=== PATIENT | female | born 1945 | race Caucasian/White ===

== ENCOUNTER 2017-02-04 04:56 | Emergency (ER) | payer MEDICARE, BC ==
[2017-02-04 05:19] VITALS: BP 159/89
--- NOTE | 2017-02-04 05:44 | EDM.PDOC ---
ED HPI GENERAL MEDICAL PROBLEM - General Chief Complaint: Genitourinary Problem Stated Complaint: BLADDER INFECTION Time Seen by Provider: 02/04/17 05:37 Source of Information: Reports: Patient, RN Notes Reviewed History Limitations: Reports: No Limitations - History of Present Illness INITIAL COMMENTS - FREE TEXT/NARRATIVE: 71-year-old female presents emergency department a complaint of burning with urination, she denies any other symptoms this has been going on for 24 hours pelvic area Pain Score (Numeric/FACES): 3 - Related Data Allergies Allergy/AdvReac Type Severity Reaction Status Date / Time Sulfa (Sulfonamide Allergy Rash Verified 03/23/13 12:09 Antibiotics) steroids Allergy Hives Uncoded 02/04/17 05:10 Home Meds: Home Meds Alendronate Sodium [Fosamax] 70 mg PO .WEEKLY 06/10/13 [History] Aspirin 325 mg PO DAILY 06/10/13 [History] Calcium Citrate/Vitamin D3 [Calcium Cit-Vit D 315-200] 2 each PO DAILY 06/10/13 [History] Cholecalciferol (Vitamin D3) [Vitamin D3] 1,000 units PO DAILY 06/10/13 [History ] Folic Acid/Mv,Fe,Min [Centrum Multivitamin] 1 each PO DAILY 06/10/13 [History] Lactobacillus Combination No.4 [Probiotic] 1 each PO DAILY 06/10/13 [History] Loratadine/Pseudoephedrine [Claritin-D 24HR] 1 tab PO DAILY 06/10/13 [History] Metoprolol Tartrate [Lopressor] 25 mg PO BID 06/10/13 [History] Mineral Oil/Petrolatum,White [Refresh Lacri-Lube] 3.5 gm OP BEDTIME 07/25/14 [ History] Past Medical History HEENT History: Reports: Impaired Vision Cardiovascular History: Reports: Hypertension Musculoskeletal History: Reports: Fracture, Other (See Below) Other Musculoskeletal History: left ankle fracture 2012 - Infectious Disease History Infectious Disease History: Reports: Chicken Pox, Measles, Mumps - Past Surgical History Head Surgeries/Procedures: Reports: None HEENT Surgical History: Reports: None Cardiovascular Surgical History: Reports: None Respiratory Surgical History: Reports: None GI Surgical History: Reports: Colonoscopy Female Surgical History: Reports: Hysterectomy Endocrine Surgical History: Reports: None Neurological Surgical History: Reports: None Musculoskeletal Surgical History: Reports: None Oncologic Surgical History: Reports: None Dermatological Surgical History: Reports: None Social & Family History - Tobacco Use Smoking Status *Q: Never Smoker Years of Tobacco use: 30 Used Tobacco, but Quit: Yes Month Tobacco Last Used: 01/2013 Second Hand Smoke Exposure: Yes - Caffeine Use Caffeine Use: Reports: Coffee, Soda - Alcohol Use Days Per Week of Alcohol Use: 7 Number of Drinks Per Day: 2 Total Drinks Per Week: 14 - Recreational Drug Use Recreational Drug Use: No ED ROS GENERAL - Review of Systems Review Of Systems: See Below Constitutional: Denies: Fever, Chills GI/Abdominal: Denies: Abdominal Pain : Reports: Dysuria ED EXAM, RENAL/ - Physical Exam Exam: See Below Exam Limited By: No Limitations General Appearance: Alert, WD/WN, No Apparent Distress GI/Abdominal: Soft, Non-Tender Back Exam: No: CVA Tenderness (R), CVA Tenderness (L) Course - Vital Signs Last Recorded V/S: Last Vital Signs Temp 96.5 F 02/04/17 05:10 Pulse 85 02/04/17 05:10 Resp 16 02/04/17 05:10 BP 159/89 H 02/04/17 05:10 Pulse Ox 99 02/04/17 05:10 - Orders/Labs/Meds Orders: Active Orders 24 hr Category Date Time Status CULTURE URINE [RM] Urgent Lab 02/04/17 05:37 Ordered Labs: Laboratory Tests 02/04/17 Range/Units 05:24 Urine Color Red Urine Appearance Cloudy Urine pH 8.0 (4.5-8.0) Ur Specific [place] 1.015 (1.008-1.030) Urine Protein 500 H (NEGATIVE) mg/dL Urine Glucose (UA) Normal (NEGATIVE) mg/dL Urine Ketones Negative (NEGATIVE) mg/dL Urine Occult Blood Large (NEGATIVE) Urine Nitrite Positive H (NEGATIVE) Urine Bilirubin Small (NEGATIVE) Urine Urobilinogen 1 (NORMAL) mg/dL Ur Leukocyte Esterase Large (NEGATIVE) Urine RBC >100 H (0-5) Urine WBC 20-30 H (0-5) Ur Epithelial Cells Few Amorphous Sediment Not seen Urine Bacteria Moderate Urine Mucus Not seen Departure - Departure Time of Disposition: 05:44 Disposition: Home, Self-Care 01 Condition: Good Clinical Impression: UTI, Urinary tract infectious disease - Discharge Information Forms: ED Department Discharge Additional Instructions: Take full course of antibiotics, Please followup with your primary care provider in 3-5 days if not better, please call return to the emergency department with worsening of symptoms. - My Orders Last 24 Hours: My Active Orders 02/04/17 05:37 CULTURE URINE [RM] Urgent - Assessment/Plan Last 24 Hours: My Active Orders 02/04/17 05:37 CULTURE URINE [RM] Urgent Plan: Assessment Acuity = acute Site and laterality = urinary tract infection Etiology = probable bacterial cause Manifestations = dysuria Location of injury = Home Lab values = urinalysis reveals positive nitrates, greater than 100 rbc's consistent hematuria in 2030 WBCs consistent with pyuria cultures pending Plan Placed on ciprofloxacin 250 by mouth twice a day 3 days follow-up primary care 3-5 days if not better Patient was in agreement with the plan all questions were answered, they were instructed to return to the emergency department or call for worsening symptoms. This note was dictated using [employer] voice recognition software please call with any questions.
== END 2017-02-04 06:12 | disposition home or self-care (01) ==
LOC: JP.ED 04:56
DX: N39.0 Urinary tract infection, site not specified (principal); H54.7 Unspecified visual loss; I10 Essential (primary) hypertension; Z90.710 Acquired absence of both cervix and uterus; Z88.2 Allergy status to sulfonamides; Z88.5 Allergy status to narcotic agent; Z79.82 Long term (current) use of aspirin; Z79.899 Other long term (current) drug therapy
CPT/HCPCS: 81001; 87086; 87088; 87186; 99283; 99284

== ENCOUNTER 2017-07-11 05:40 | Emergency (ER) | payer MEDICARE, BC ==
[2017-07-11 05:59] VITALS: BP 153/86
--- NOTE | 2017-07-11 06:33 | EDM.PDOC ---
ED HPI GENERAL MEDICAL PROBLEM - General Chief Complaint: Genitourinary Problem Stated Complaint: UTI Time Seen by Provider: 07/11/17 06:15 Source of Information: Reports: Patient History Limitations: Reports: No Limitations - History of Present Illness INITIAL COMMENTS - FREE TEXT/NARRATIVE: 71-year-old female with dysuria and increased urinary frequency for the last 48 hours. No fevers or chills, no flank pain. Denies nausea or vomiting. Onset: Gradual Duration: Day(s): (Over the past 3 days) Severity: Mild Worsens with: Reports: Other (Urination) Associated Symptoms: Denies: Chest Pain, Fever/Chills, Nausea/Vomiting, Shortness of Breath bladder Pain Score (Numeric/FACES): 2 - Related Data Allergies Allergy/AdvReac Type Severity Reaction Status Date / Time Sulfa (Sulfonamide Allergy Rash Verified 07/11/17 05:52 Antibiotics) steroids Allergy Hives Uncoded 07/11/17 05:52 Home Meds: Home Meds Alendronate Sodium [Fosamax] 70 mg PO .WEEKLY 06/10/13 [History] Aspirin 325 mg PO DAILY 06/10/13 [History] Calcium Citrate/Vitamin D3 [Calcium Cit-Vit D 315-200] 2 each PO DAILY 06/10/13 [History] Cholecalciferol (Vitamin D3) [Vitamin D3] 1,000 units PO DAILY 06/10/13 [History ] Folic Acid/Mv,Fe,Min [Centrum Multivitamin] 1 each PO DAILY 06/10/13 [History] Lactobacillus Combination No.4 [Probiotic] 1 each PO DAILY 06/10/13 [History] Loratadine/Pseudoephedrine [Claritin-D 24HR] 1 tab PO DAILY 06/10/13 [History] Metoprolol Tartrate [Lopressor] 25 mg PO BID 06/10/13 [History] Mineral Oil/Petrolatum,White [Refresh Lacri-Lube] 3.5 gm OP BEDTIME 07/25/14 [ History] Past Medical History HEENT History: Reports: Impaired Vision Cardiovascular History: Reports: Hypertension Respiratory History: Reports: None Gastrointestinal History: Reports: None Genitourinary History: Reports: None LINE MAINTENANCE History: Reports: None Musculoskeletal History: Reports: Fracture, Other (See Below) Other Musculoskeletal History: left ankle fracture 2013 Neurological History: Reports: None Psychiatric History: Reports: None Endocrine/Metabolic History: Reports: None Hematologic History: Reports: None Immunologic History: Reports: None Oncologic (Cancer) History: Reports: None Dermatologic History: Reports: None - Infectious Disease History Infectious Disease History: Reports: Chicken Pox, Measles, Mumps - Past Surgical History GI Surgical History: Reports: Colonoscopy Female Surgical History: Reports: Hysterectomy Social & Family History - Tobacco Use Smoking Status *Q: Never Smoker Years of Tobacco use: 30 Used Tobacco, but Quit: Yes Month Tobacco Last Used: 01/2013 Second Hand Smoke Exposure: Yes - Caffeine Use Caffeine Use: Reports: Coffee, Soda - Alcohol Use Days Per Week of Alcohol Use: 7 Number of Drinks Per Day: 2 Total Drinks Per Week: 14 - Recreational Drug Use Recreational Drug Use: No ED ROS GENERAL - Review of Systems Review Of Systems: See Below Constitutional: Denies: Fever, Chills Respiratory: Denies: Shortness of Breath Cardiovascular: Denies: Chest Pain GI/Abdominal: Denies: Abdominal Pain : Reports: Dysuria, Frequency, Urgency ED EXAM, RENAL/ - Physical Exam Exam: See Below Exam Limited By: No Limitations General Appearance: Alert, No Apparent Distress Respiratory/Chest: No Respiratory Distress Back Exam: No: CVA Tenderness (R), CVA Tenderness (L) Neurological: Alert, Oriented Psychiatric: Normal Affect, Normal Mood Skin Exam: Warm, Dry Course - Vital Signs Last Recorded V/S: Last Vital Signs Temp 95.0 F L 07/11/17 06:01 Pulse 99 07/11/17 06:01 Resp 17 07/11/17 06:01 BP 153/86 H 07/11/17 06:01 Pulse Ox 100 07/11/17 06:01 - Orders/Labs/Meds Orders: Active Orders 24 hr Category Date Time Status CULTURE URINE [RM] Stat Lab 07/11/17 06:06 Received Labs: Laboratory Tests 07/11/17 Range/Units 06:06 Urine Color Brown Urine Appearance Cloudy Urine pH 7.0 (4.5-8.0) Ur Specific [place] 1.020 (1.008-1.030) Urine Protein 500 H (NEGATIVE) mg/dL Urine Glucose (UA) Normal (NEGATIVE) mg/dL Urine Ketones Negative (NEGATIVE) mg/dL Urine Occult Blood Large (NEGATIVE) Urine Nitrite Positive H (NEGATIVE) Urine Bilirubin Negative (NEGATIVE) Urine Urobilinogen 1 (NORMAL) mg/dL Ur Leukocyte Esterase Large (NEGATIVE) Urine RBC Packed H (0-5) Urine WBC (0-5) - Re-Assessments/Exams Free Text/Narrative Re-Assessment/Exam: 07/11/17 06:31 UA is actively abnormal with packed RBCs, bacteria, and nitrite positive. Very similar to findings on her UTI 5 months ago. She responded well to ciprofloxacin , he will be used again at 500 mg twice daily for 3 days. Patient declined Pyridium. She'll return if worsening despite treatment. Departure - Departure Time of Disposition: 06:51 Disposition: Home, Self-Care 01 Condition: Good Clinical Impression: UTI, Urinary tract infectious disease - Discharge Information Instructions: Urinary Tract Infection, Adult, [id number] Referrals: Danita Schneider CNM [Primary Care Provider] - Forms: ED Department Discharge Care Plan Goals: Take antibiotic twice a day for 3 days, drink lots of water and return if not improving satisfactorily after 48-72 hours. Return sooner if worsening such as fever or vomiting, or increased pain. - My Orders Last 24 Hours: My Active Orders 07/11/17 06:06 CULTURE URINE [RM] Stat - Assessment/Plan Last 24 Hours: My Active Orders 07/11/17 06:06 CULTURE URINE [RM] Stat
== END 2017-07-11 06:43 | disposition home or self-care (01) ==
LOC: JP.ED 05:40
DX: N39.0 Urinary tract infection, site not specified (principal); I10 Essential (primary) hypertension; Z87.891 Personal history of nicotine dependence; Z79.899 Other long term (current) drug therapy; Z79.82 Long term (current) use of aspirin; Z88.2 Allergy status to sulfonamides; Z88.8 Allergy status to other drugs, medicaments and biological substances
CPT/HCPCS: 81001; 87086; 87088; 87186; 99283; 99284

== ENCOUNTER 2018-04-22 11:17 | Emergency (ER) | payer MEDICARE, BC ==
--- NOTE | 2018-04-22 12:32 | EDM.PDOC ---
ED HPI GENERAL MEDICAL PROBLEM - General Chief Complaint: Abdominal Pain Stated Complaint: MED[facility] Time Seen by Provider: 04/22/18 11:30 Source of Information: Reports: Patient, EMS History Limitations: Reports: No Limitations - History of Present Illness INITIAL COMMENTS - FREE TEXT/NARRATIVE: 72-year-old female brought in by EMS with diarrhea for the past 5 hours, she noticed some blood in the diarrhea which scared her so she called EMS. She feels like she is already improving with less abdominal cramping and diarrhea slowing down. No fever, no vomiting. She does have some mild nausea. She woke up with symptoms at 5 AM, she was fine when she went to bed. A colonoscopy 3 years ago was normal. She has no history of chronic colitis or other gastrointestinal disease. Onset: Sudden Duration: Hour(s): (6 hours) Severity: Moderate Associated Symptoms: Reports: Malaise. Denies: Confusion, Chest Pain, Fever/ Chills, Loss of Appetite, Shortness of Breath Abdomen Pain Score (Numeric/FACES): 2 - Related Data Allergies Allergy/AdvReac Type Severity Reaction Status Date / Time Latex, Natural Rubber Allergy Hives Verified 04/22/18 11:26 Sulfa (Sulfonamide Allergy Rash Verified 04/22/18 11:20 Antibiotics) steroids Allergy Hives Uncoded 07/11/17 05:52 Home Meds: Home Meds Alendronate Sodium [Fosamax] 70 mg PO .WEEKLY 06/10/13 [History] Aspirin 325 mg PO DAILY 06/10/13 [History] Calcium Citrate/Vitamin D3 [Calcium Cit-Vit D 315-200] 2 each PO DAILY 06/10/13 [History] Cholecalciferol (Vitamin D3) [Vitamin D3] 1,000 units PO DAILY 06/10/13 [History ] Folic Acid/Mv,Fe,Min [Centrum Multivitamin] 1 each PO DAILY 06/10/13 [History] Lactobacillus Combination No.4 [Probiotic] 1 each PO DAILY 06/10/13 [History] Loratadine/Pseudoephedrine [Claritin-D 24HR] 1 tab PO DAILY 06/10/13 [History] Metoprolol Tartrate [Lopressor] 25 mg PO BID 06/10/13 [History] Mineral Oil/Petrolatum,White [Refresh Lacri-Lube] 3.5 gm OP BEDTIME 07/25/14 [ History] Fluticasone Propionate [Flonase] 1 spray [place] DAILY 04/22/18 [History] Ranitidine HCl [Ranitidine] 1 tab PO BID 04/22/18 [History] Past Medical History HEENT History: Reports: Impaired Vision Cardiovascular History: Reports: Hypertension Respiratory History: Reports: None Gastrointestinal History: Reports: None Genitourinary History: Reports: None TRANSPORTATION JOB TITLES History: Reports: None Musculoskeletal History: Reports: Fracture, Other (See Below) Other Musculoskeletal History: left ankle fracture 2012 Neurological History: Reports: Migraines Psychiatric History: Reports: None Endocrine/Metabolic History: Reports: None Hematologic History: Reports: None Immunologic History: Reports: None Oncologic (Cancer) History: Reports: None Dermatologic History: Reports: None - Infectious Disease History Infectious Disease History: Reports: Chicken Pox, Measles, Mumps - Past Surgical History GI Surgical History: Reports: Appendectomy, Colonoscopy Female Surgical History: Reports: Hysterectomy Social & Family History - Tobacco Use Smoking Status *Q: Never Smoker - Caffeine Use Caffeine Use: Reports: Coffee, Soda - Alcohol Use Days Per Week of Alcohol Use: 7 Number of Drinks Per Day: 2 Total Drinks Per Week: 14 - Recreational Drug Use Recreational Drug Use: No ED ROS GENERAL - Review of Systems Review Of Systems: See Below Constitutional: Reports: Chills, Malaise. Denies: Fever HEENT: Reports: No Symptoms Respiratory: Denies: Shortness of Breath Cardiovascular: Denies: Chest Pain Endocrine: Denies: Fatigue GI/Abdominal: Reports: Abdominal Pain, Diarrhea, Hematochezia, Nausea. Denies: Vomiting : Reports: No Symptoms Skin: Reports: No Symptoms Neurological: Reports: No Symptoms Psychiatric: Reports: No Symptoms ED EXAM, GI/ABD - Physical Exam Exam: See Below Exam Limited By: No Limitations General Appearance: Alert, No Apparent Distress Eyes: Bilateral: Normal Appearance (No jaundice) Respiratory/Chest: No Respiratory Distress, Lungs Clear Cardiovascular: Regular Rate, Rhythm GI/Abdominal Exam: Soft, Tender (She has diffuse discomfort to palpation but no focal tenderness or rebound tenderness, no guarding), Abnormal Bowel Sounds ( Bowel sounds are hyperactive but not high pitched) Extremities: Normal Inspection. No: Pedal Edema Neurological: Alert, Oriented Psychiatric: Normal Affect, Normal Mood Skin Exam: Warm, Dry Course - Vital Signs Last Recorded V/S: Last Vital Signs Temp 97.1 F 04/22/18 13:04 Pulse 70 04/22/18 13:04 Resp 16 04/22/18 13:04 BP 175/90 H 04/22/18 13:04 Pulse Ox 100 04/22/18 13:04 - Orders/Labs/Meds Orders: Active Orders 24 hr Category Date Time Status CULTURE STOOL + SHIGATOX [RM] Stat Lab 04/22/18 13:43 Received Labs: Laboratory Tests 04/22/18 04/22/18 Range/Units 12:14 12:14 WBC 14.0 H (4.5-11.0) K/uL RBC 4.56 (3.30-5.50) M/uL Hgb 15.0 (12.0-15.0) g/dL Hct 42.0 (36.0-48.0) % MCV 92 (80-98) fL MCH 33 H (27-31) pg MCHC 36 (32-36) % Plt Count 231 (150-400) K/uL Neut % (Auto) 89 H (36-66) % Lymph % (Auto) 5 L (24-44) % [place] % (Auto) 6 (2-6) % Eos % (Auto) 0 L (2-4) % Baso % (Auto) 0 (0-1) % Sodium 131 L (140-148) mmol/L Potassium 4.2 (3.6-5.2) mmol/L Chloride 94 L (100-108) mmol/L Carbon Dioxide 29 (21-32) mmol/L Anion Gap 12.2 (5.0-14.0) mmol/L BUN 13 (7-18) mg/dL Creatinine 0.8 (0.6-1.0) mg/dL Est Cr Clr Drug Dosing 58.88 mL/min Estimated GFR (MDRD) > 60 (>60) Glucose 122 H (74-106) mg/dL Calcium 9.9 (8.5-10.1) mg/dL Total Bilirubin 0.8 (0.2-1.0) mg/dL AST 26 (15-37) U/L ALT 25 (12-78) U/L Alkaline Phosphatase 103 (46-116) U/L Total Protein 7.9 (6.4-8.2) g/dL Albumin 4.1 (3.4-5.0) g/dL Globulin 3.8 H (2.3-3.5) g/dL Albumin/Globulin Ratio 1.1 L (1.2-2.2) - Re-Assessments/Exams Free Text/Narrative Re-Assessment/Exam: 04/22/18 12:31 CBC CMP were obtained and orders for stool studies. Patient was in the emergency room for an hour pending labs, and was unable to give a stool sample. 04/22/18 13:24 Labs returned reassuring, white count was just slightly elevated and her CMP was basically normal. Hemoglobin is normal. After 2 hours she still did not have a diarrheal stool and her symptoms were resolving, she was able to stand and ambulate without significant discomfort. Just prior to discharge however she did have a diarrheal stool with mucus and some blood. This was sent to lab and was moderately positive for WBCs. She is small meal without difficulty. She' ll be discharged and informed to return if symptoms recur or worsen or she'll recheck if not improving satisfactorily in the next 24-48 hours. We will contact her with any positive culture results that need follow-up. Departure - Departure Time of Disposition: 15:06 Disposition: Home, Self-Care 01 Condition: Good Clinical Impression: Diarrhea Qualifiers: Diarrhea type: presumed infectious Qualified Code(s): R19.7 - Diarrhea, unspecified - Discharge Information Instructions: Diarrhea, Adult, [id number] Referrals: PCP,None [Primary Care Provider] - Forms: ED Department Discharge Care Plan Goals: Advance activity and diet as tolerated. Return anytime if significant worsening or concerns, or consider rechecking in 1-2 days if not improving satisfactorily. - My Orders Last 24 Hours: My Active Orders 04/22/18 13:43 CULTURE STOOL + SHIGATOX [RM] Stat - Assessment/Plan Last 24 Hours: My Active Orders 04/22/18 13:43 CULTURE STOOL + SHIGATOX [RM] Stat
[2018-04-22 13:04] VITALS: BP 175/90
== END 2018-04-22 15:29 | disposition home or self-care (01) ==
LOC: JP.ED 11:17
DX: R19.7 Diarrhea, unspecified (principal); Z79.82 Long term (current) use of aspirin; Z79.899 Other long term (current) drug therapy; Z88.2 Allergy status to sulfonamides; Z91.040 Latex allergy status; Z88.8 Allergy status to other drugs, medicaments and biological substances
CPT/HCPCS: 36415; 80053; 85025; 87046; 87899; 89055; 99284

== ENCOUNTER 2018-04-23 14:29 | Inpatient (IN) | payer MEDICARE, BC ==
--- NOTE | 2018-04-23 16:11 | EDM.PDOC ---
ED HPI GENERAL MEDICAL PROBLEM - General Chief Complaint: Gastrointestinal Problem Stated Complaint: BOWEL BLEED Time Seen by Provider: 04/23/18 15:15 Source of Information: Reports: Patient History Limitations: Reports: No Limitations - History of Present Illness INITIAL COMMENTS - FREE TEXT/NARRATIVE: 72-year-old female who I saw yesterday for rectal bleeding, she made a call to her clinic this morning to talk to them about persistent bleeding and some cramping in they advised her to come back to the emergency room. She has no fevers or chills. She had no bleeding overnight but this morning when she took a shower she had a few clots pass rectally. She is still having some intermittent lower abdominal cramping. No nausea or vomiting. Onset: Sudden Associated Symptoms: Denies: Chest Pain, Cough, Fever/Chills, Malaise, Nausea/ Vomiting, Shortness of Breath, Weakness Left Lower Abdomen Pain Score (Numeric/FACES): 2 - Related Data Allergies Allergy/AdvReac Type Severity Reaction Status Date / Time Latex, Natural Rubber Allergy Hives Verified 04/23/18 14:45 Sulfa (Sulfonamide Allergy Rash Verified 04/23/18 14:45 Antibiotics) steroids Allergy Hives Uncoded 04/23/18 14:45 Home Meds: Home Meds Alendronate Sodium [Fosamax] 70 mg PO .WEEKLY 06/10/13 [History] Aspirin 325 mg PO DAILY 06/10/13 [History] Calcium Citrate/Vitamin D3 [Calcium Cit-Vit D 315-200] 2 each PO DAILY 06/10/13 [History] Cholecalciferol (Vitamin D3) [Vitamin D3] 1,000 units PO DAILY 06/10/13 [History ] Folic Acid/Mv,Fe,Min [Centrum Multivitamin] 1 each PO DAILY 06/10/13 [History] Lactobacillus Combination No.4 [Probiotic] 1 each PO DAILY 06/10/13 [History] Loratadine/Pseudoephedrine [Claritin-D 24HR] 1 tab PO DAILY 06/10/13 [History] Metoprolol Tartrate [Lopressor] 25 mg PO BID 06/10/13 [History] Mineral Oil/Petrolatum,White [Refresh Lacri-Lube] 3.5 gm OP BEDTIME 07/25/14 [ History] Fluticasone Propionate [Flonase] 1 spray KATARINA DAILY 04/22/18 [History] Ranitidine HCl [Ranitidine] 1 tab PO BID 04/22/18 [History] Carboxymethylcellulose Sodium [Thera Tears] 1 drop OP Q4HR PRN 04/24/18 [History ] Sodium Chloride [Nasal Moisturizing] 44 ml NS ASDIRECTED PRN 04/24/18 [History] Past Medical History HEENT History: Reports: Impaired Vision Cardiovascular History: Reports: Hypertension Respiratory History: Reports: None Gastrointestinal History: Reports: GI Bleed Genitourinary History: Reports: None [employer] History: Reports: None Musculoskeletal History: Reports: Fracture, Other (See Below) Other Musculoskeletal History: left ankle fracture 2012 Neurological History: Reports: Migraines Psychiatric History: Reports: None Endocrine/Metabolic History: Reports: None Hematologic History: Reports: None Immunologic History: Reports: None Oncologic (Cancer) History: Reports: None Dermatologic History: Reports: None - Infectious Disease History Infectious Disease History: Reports: Chicken Pox, Measles, Mumps - Past Surgical History GI Surgical History: Reports: Appendectomy, Colonoscopy Female Surgical History: Reports: Hysterectomy Social & Family History - Tobacco Use Smoking Status *Q: Never Smoker - Caffeine Use Caffeine Use: Reports: Soda - Alcohol Use Days Per Week of Alcohol Use: 7 Number of Drinks Per Day: 2 Total Drinks Per Week: 14 - Recreational Drug Use Recreational Drug Use: No ED ROS GENERAL - Review of Systems Review Of Systems: See Below Constitutional: Reports: Malaise. Denies: Fever, Chills HEENT: Reports: No Symptoms Respiratory: Denies: Shortness of Breath Cardiovascular: Denies: Chest Pain GI/Abdominal: Reports: Abdominal Pain, Hematochezia. Denies: Nausea, Vomiting : Reports: No Symptoms Skin: Reports: No Symptoms Neurological: Reports: No Symptoms Psychiatric: Reports: No Symptoms ED EXAM, GI/ABD - Physical Exam Exam: See Below Exam Limited By: No Limitations General Appearance: Alert, No Apparent Distress Eyes: Bilateral: Normal Appearance Respiratory/Chest: No Respiratory Distress, Lungs Clear Cardiovascular: Regular Rate, Rhythm GI/Abdominal Exam: Soft, Tender (Some tenderness in both lower quadrants but no guarding or rebound) Rectal (Female) Exam: Other (No stool is present, there is gross blood present. No masses or external lesions). No: Hemorrhoids Neurological: Alert, Oriented Psychiatric: Normal Affect, Normal Mood Skin Exam: Warm, Dry Course - Vital Signs Last Recorded V/S: Last Vital Signs Temp 97.9 F 04/25/18 07:00 Pulse 79 04/25/18 07:00 Resp 18 04/25/18 07:00 BP 148/79 H 04/25/18 07:00 Pulse Ox 99 04/25/18 07:00 - Orders/Labs/Meds Orders: Medication Orders Acetaminophen (Tylenol) 650 mg PO Q4H PRN PRN Reason: Pain (Mild 1-3)/fever Last Admin: 04/24/18 22:20 Dose: 650 mg Admin: 04/24/18 02:42 Dose: 650 mg Diphenhydramine HCl (Benadryl) 25 mg PO BEDTIME PRN PRN Reason: Insomnia Last Admin: 04/24/18 22:23 Dose: 25 mg Admin: 04/24/18 02:42 Dose: 25 mg Fluticasone Propionate (Flonase) 0 gm KATARINA QPM [facility] Last Admin: 04/24/18 17:05 Dose: 1 spray Ciprofloxacin/Dextrose 400 mg/ (Premix) 200 mls @ 200 mls/hr IV Q12H [facility] Last Admin: 04/25/18 05:38 Dose: 200 mls/hr Infusion: 04/24/18 18:10 Dose: 200 mls/hr Admin: 04/24/18 17:10 Dose: 200 mls/hr Infusion: 04/24/18 06:06 Dose: 200 mls/hr Admin: 04/24/18 05:06 Dose: 200 mls/hr Metronidazole 500 mg/ Premix 100 mls @ 100 mls/hr IV Q8H [facility]ON Last Admin: 04/25/18 04:42 Dose: 100 mls/hr Infusion: 04/24/18 21:28 Dose: 100 mls/hr Admin: 04/24/18 20:28 Dose: 100 mls/hr Infusion: 04/24/18 12:08 Dose: 100 mls/hr Admin: 04/24/18 11:08 Dose: 100 mls/hr Infusion: 04/24/18 04:15 Dose: 100 mls/hr Admin: 04/24/18 03:15 Dose: 100 mls/hr Infusion: 04/23/18 22:21 Dose: 100 mls/hr Admin: 04/23/18 21:21 Dose: 100 mls/hr Sodium Chloride (Normal Saline) 1,000 mls @ 75 mls/hr IV ASDIRECTED [facility] Lactobacillus Rhamnosus (Culturelle) 1 cap PO DAILY [facility] Last Admin: 04/24/18 08:55 Dose: 1 cap Lidocaine (Lidoderm 5%) 700 mg TOP BEDTIME [facility] Last Admin: 04/24/18 21:50 Dose: 700 mg Loratadine (Claritin) 10 mg PO QPM [facility] Last Admin: 04/24/18 17:06 Dose: 10 mg Metoprolol Tartrate (Lopressor) 25 mg PO BID [facility] Last Admin: 04/24/18 21:40 Dose: 25 mg Admin: 04/24/18 08:56 Dose: 25 mg Admin: 04/23/18 21:21 Dose: Miscellaneous Information (Remove Patch) 1 ea TRDERM DAILY [facility] Ondansetron HCl (Zofran) 4 mg IV Q4H PRN PRN Reason: Nausea/Vomiting Oxycodone HCl (Oxycodone) 5 mg PO Q4H PRN PRN Reason: Pain (moderate 4-6) Pseudoephedrine HCl (Sudogest) 60 mg PO Q6H PRN PRN Reason: CONGESTION Ranitidine HCl (Zantac) 150 mg PO BID [facility] Last Admin: 04/24/18 21:39 Dose: 150 mg Admin: 04/24/18 08:56 Dose: 150 mg Sodium Chloride (Saline Flush) 10 ml FLUSH ASDIRECTED PRN PRN Reason: Keep Vein Open Labs: Laboratory Tests 04/23/18 04/23/18 Range/Units 15:24 15:24 WBC 17.8 H (4.5-11.0) K/uL RBC 4.36 (3.30-5.50) M/uL Hgb 14.1 (12.0-15.0) g/dL Hct 41.0 (36.0-48.0) % MCV 94 (80-98) fL MCH 32 H (27-31) pg MCHC 34 (32-36) % Plt Count 223 (150-400) K/uL Neut % (Auto) 86 H (36-66) % Lymph % (Auto) 7 L (24-44) % [place] % (Auto) 7 H (2-6) % Eos % (Auto) 0 L (2-4) % Baso % (Auto) 0 (0-1) % Sodium 126 L (140-148) mmol/L Potassium 3.7 (3.6-5.2) mmol/L Chloride 89 L (100-108) mmol/L Carbon Dioxide 27 (21-32) mmol/L Anion Gap 13.7 (5.0-14.0) mmol/L BUN 16 (7-18) mg/dL Creatinine 1.3 H D (0.6-1.0) mg/dL Est Cr Clr Drug Dosing 39.16 mL/min Estimated GFR (MDRD) 40 L (>60) Glucose 151 H (74-106) mg/dL Calcium 9.1 (8.5-10.1) mg/dL Meds: Medications Generic Name Dose Route Start Last Admin Trade Name Freq PRN Reason Stop Dose Admin Acetaminophen 650 mg 04/23/18 18:53 04/24/18 22:20 Tylenol PO 650 mg Q4H PRN Administration Pain (Mild 1-3)/fever Diphenhydramine HCl 25 mg 04/23/18 19:37 04/24/18 22:23 Benadryl PO 25 mg BEDTIME PRN Administration Insomnia Fluticasone Propionate 0 gm 04/24/18 17:00 04/24/18 17:05 Flonase KATARINA 1 spray QPM [facility]AVON Administration Ciprofloxacin/Dextrose 400 mg/ 200 mls @ 200 mls/hr 04/24/18 06:00 04/25/18 05:38 Premix IV 200 mls/hr Q12H [facility]ON Administration Metronidazole 500 mg/ Premix 100 mls @ 100 mls/hr 04/23/18 20:00 04/25/18 04: 42 IV 100 mls/hr Q8H JAVON Administration Sodium Chloride 1,000 mls @ 75 mls/hr 04/24/18 10:45 Normal Saline IV ASDIRECTED JAVON Lactobacillus Rhamnosus 1 cap 04/24/18 09:00 04/24/18 08:55 Culturelle PO 1 cap DAILY [facility] Administration Lidocaine 700 mg 04/24/18 21:00 04/24/18 21:50 Lidoderm 5% TOP 700 mg BEDTIME [facility]ON Administration Loratadine 10 mg 04/24/18 17:00 04/24/18 17:06 Claritin PO 10 mg QPM JAVON Administration Metoprolol Tartrate 25 mg 04/23/18 21:00 04/24/18 21:40 Lopressor PO 25 mg BID JAVON Administration Miscellaneous Information 1 ea 04/25/18 09:00 Remove Patch TRDERM DAILY [facility] Ondansetron HCl 4 mg 04/23/18 18:53 Zofran IV Q4H PRN Nausea/Vomiting Oxycodone HCl 5 mg 04/23/18 18:53 Oxycodone PO Q4H PRN Pain (moderate 4-6) Pseudoephedrine HCl 60 mg 04/24/18 07:34 Sudogest PO Q6H PRN CONGESTION Ranitidine HCl 150 mg 04/24/18 09:00 04/24/18 21:39 Zantac PO 150 mg BID JAVON Administration Sodium Chloride 10 ml 04/23/18 18:53 Saline Flush FLUSH ASDIRECTED PRN Keep Vein Open Discontinued Medications Generic Name Dose Route Start Last Admin Trade Name Freq PRN Reason Stop Dose Admin Fluticasone Propionate 0 gm 04/24/18 09:00 Flonase KATARINA DAILY [facility]ON Sodium Chloride 70 mls @ 3 mls/sec 04/23/18 16:17 04/23/18 16:51 Normal Saline IV 04/23/18 16:18 3 mls/sec ONETIME ONE Administration Sodium Chloride 1,000 mls @ 1,000 mls/hr 04/23/18 16:45 04/23/18 16:52 Normal Saline IV 1,000 mls/hr ASDIRECTED JAVON Administration Ciprofloxacin/Dextrose 400 mg/ 200 mls @ 200 mls/hr 04/23/18 17:53 04/23/18 18:08 Premix IV 04/23/18 18:52 200 mls/hr ONETIME ONE Administration Sodium Chloride 1,000 mls @ 125 mls/hr 04/23/18 18:53 04/24/18 14:00 Normal Saline IV Infused ASDIRECTED JAVON Infusion Magnesium Sulfate 2 gm/ Premix 50 mls @ 25 mls/hr 04/24/18 09:00 04/24/18 21: 44 IV 04/24/18 22:59 25 mls/hr Q6H JAVON Administration Potassium Chloride 20 meq/ 112 mls @ 56 mls/hr 04/24/18 10:00 04/24/18 13:13 Lidocaine HCl 2 ml/ Sodium IV 04/24/18 13:59 56 mls/hr Chloride Q2H JAVON Administration Iopamidol 100 ml 04/23/18 16:30 04/23/18 16:51 Isovue-300 (61%) IV 04/23/18 20:00 96 ml . DIRECTED JAVON Administration Loratadine 10 mg 04/24/18 09:00 Claritin PO DAILY [facility]ON Sodium Chloride 10 ml 04/23/18 16:17 04/23/18 16:51 Saline Flush FLUSH 04/23/18 16:18 10 ml ONETIME ONE Administration - Re-Assessments/Exams Free Text/Narrative Re-Assessment/Exam: 04/23/18 16:10 CBC was repeated, her hemoglobin is dropped from [address] the abdomen and pelvis was then obtained with IV contrast. 04/23/18 18:21 WBC was elevated to 17,000. CT of the abdomen showed concentric quite severe descending colon inflammation and pelvic free fluid. I discussed this with surgery as well as the hospitalist service, and it was felt the patient likely has ischemic colitis or infectious colitis. A culture obtained yesterday shows no growth to this point. She'll be hydrated with fluid, admitted for IV antibiotics with likely surgical consult tomorrow. Departure - Departure Time of Disposition: 18:21 Disposition: Admitted As Inpatient 68 Condition: Fair Clinical Impression: Colitis - Discharge Information
[2018-04-23] MEDS ORDERED: Sodium Chloride 0.9% 10 ML Syringe FLUSH ONE (16:17)
[2018-04-23] MEDS ORDERED: Iopamidol 612 MG/ML 100 ML Bottle IV SCH (16:30)
[2018-04-23] MEDS ORDERED: Sodium Chloride 0.9% 1,000 ML IV SCH (16:45)
[2018-04-23] MEDS ORDERED: Ciprofloxacin in D5W 400 MG in Premix Bag 1 BAG IV ONE ×2 (17:53)
[2018-04-23] MEDS ORDERED: Sodium Chloride 0.9% 10 ML Syringe FLUSH PRN (18:53)
[2018-04-23] MEDS ORDERED: Ondansetron 4 MG/2 ML SDV IV PRN (18:53)
[2018-04-23] MEDS ORDERED: oxyCODONE 5 MG Tab PO PRN (18:53)
[2018-04-23] MEDS: Sodium Chloride 0.9% 1,000 ML IV SCH (19:25)
--- NOTE | 2018-04-23 20:47 | PCM.HP ---
H&P History of Present Illness - General Date of Service: 04/23/18 Admit Problem/Dx: Admission Diagnosis/Problem Admission Diagnosis/Problem Colitis Source of Information: Patient History Limitations: Reports: No Limitations - History of Present Illness Initial Comments - Free Text/Narative: 72-year-old female who was seen in ER yesterday for rectal bleeding, she made a call to her clinic this morning to talk to them about persistent bleeding and some cramping. They advised her to come back to the emergency room. She had no fevers, chills or bleeding overnight. This morning when she took a shower she had a few clots pass rectally. She is still having some intermittent lower abdominal cramping. No nausea or vomiting. Labs: CBC was repeated, hemoglobin is dropped from 15 to 14.1. WBC was elevated to 17,000. CT of the abdomen showed concentric quite severe descending colon inflammation and pelvic free fluid. I discussed this with surgery as well as the hospitalist service, and it was felt the patient likely has ischemic colitis or infectious colitis. A culture obtained yesterday shows no growth to this point. plan to admit to hospital for monitoring, IV fluids and IV antibiotics. Onset of Symptoms: Reports: Gradual Symptom Onset Date: 04/21/18 Duration of Symptoms: Reports: Day(s): Location: Reports: Abdomen (4 bloody stools today) Quality: Reports: Other (no pain at this time, but when had the stool, experienced a lot of cramping and pain.) Improves with: Reports: None Worsens with: Reports: None Associated Symptoms: Reports: Loss of Appetite Left Lower Abdomen Pain Score (Numeric/FACES): 2 - Related Data Allergies/Adverse Reactions: Allergies Allergy/AdvReac Type Severity Reaction Status Date / Time Latex, Natural Rubber Allergy Hives Verified 04/23/18 14:45 Sulfa (Sulfonamide Allergy Rash Verified 04/23/18 14:45 Antibiotics) steroids Allergy Hives Uncoded 04/23/18 14:45 Home Medications: Home Meds Alendronate Sodium [Fosamax] 70 mg PO .WEEKLY 06/10/13 [History] Aspirin 325 mg PO DAILY 06/10/13 [History] Calcium Citrate/Vitamin D3 [Calcium Cit-Vit D 315-200] 2 each PO DAILY 06/10/13 [History] Cholecalciferol (Vitamin D3) [Vitamin D3] 1,000 units PO DAILY 06/10/13 [History ] Folic Acid/Mv,Fe,Min [Centrum Multivitamin] 1 each PO DAILY 06/10/13 [History] Lactobacillus Combination No.4 [Probiotic] 1 each PO DAILY 06/10/13 [History] Loratadine/Pseudoephedrine [Claritin-D 24HR] 1 tab PO DAILY 06/10/13 [History] Metoprolol Tartrate [Lopressor] 25 mg PO BID 06/10/13 [History] Mineral Oil/Petrolatum,White [Refresh Lacri-Lube] 3.5 gm OP BEDTIME 07/25/14 [ History] Fluticasone Propionate [Flonase] 1 spray KATARINA DAILY 04/22/18 [History] Ranitidine HCl [Ranitidine] 1 tab PO BID 04/22/18 [History] Past Medical History HEENT History: Reports: Impaired Vision Cardiovascular History: Reports: Hypertension Respiratory History: Reports: None Gastrointestinal History: Reports: GI Bleed Genitourinary History: Reports: 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 Musculoskeletal History: Reports: Fracture, Other (See Below) Other Musculoskeletal History: left ankle fracture 2012 Neurological History: Reports: Migraines Psychiatric History: Reports: None Endocrine/Metabolic History: Reports: None Hematologic History: Reports: None Immunologic History: Reports: None Oncologic (Cancer) History: Reports: None Dermatologic History: Reports: None - Infectious Disease History Infectious Disease History: Reports: Chicken Pox, Measles, Mumps - Past Surgical History GI Surgical History: Reports: Appendectomy, Colonoscopy Female Surgical History: Reports: Hysterectomy Social & Family History - Tobacco Use Smoking Status *Q: Never Smoker - Caffeine Use Caffeine Use: Reports: Soda - Alcohol Use Days Per Week of Alcohol Use: 7 Number of Drinks Per Day: 2 Total Drinks Per Week: 14 - Recreational Drug Use Recreational Drug Use: No - Living Situation & Occupation Living situation: Reports: , Alone 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[employer], lives alone [place] the [place], [place]., raised 4 children.) H&P Review of Systems - Review of Systems: Review Of Systems: See Below General: Reports: Weakness, Other (two day history of bloody stools/clots, now with fatigue and weakness due to not eating or drinking.) HEENT: Reports: Glasses, Other (natural teeth.) Pulmonary: Reports: No Symptoms Cardiovascular: Reports: No Symptoms Gastrointestinal: Reports: Abdominal Pain, Bloody Stool, Diarrhea Genitourinary: Reports: Dysuria, Frequency, Other (current treatment for UTI with Cipro ) Skin: Reports: No Symptoms Psychiatric: Reports: No Symptoms Neurological: Reports: No Symptoms Hematologic/Lymphatic: Reports: No Symptoms Immunologic: Reports: Seasonal Allergy Exam - Exam Exam: See Below - Vital Signs Vital Signs: Last Vital Signs Temp 36.6 C 04/23/18 19:05 Pulse 78 04/23/18 19:05 Resp 16 04/23/18 19:05 BP 152/75 H 04/23/18 19:05 Pulse Ox 100 04/23/18 19:05 Weight: 64.41 kg - Exam General: Alert, Oriented, Cooperative HEENT: PERRLA, Hearing Intact, Mucosa Moist & [place], Nares Patent, Normal Nasal Septum, Posterior Pharynx Clear, Conjunctiva Clear, EOMI, EACs Clear, TMs Clear Neck: Supple, Trachea Midline, 2 Lungs: Clear to Auscultation, Normal Respiratory Effort Cardiovascular: Regular Rate, Regular Rhythm, Normal S1, Normal S2 GI/Abdominal Exam: Normal Bowel Sounds, Soft, No Organomegaly, No Distention, No Abnormal Bruit, No Mass, Tender (generalized mild tenderness, no rebound or guarding.) (Female) Exam: Deferred Rectal (Female) Exam: Deferred Back Exam: Normal Inspection, Full Range of Motion, NT Extremities: Normal Inspection, Normal Range of Motion, Non-Tender, No Pedal Edema, Normal Capillary Refill Peripheral Pulses: 2+: Radial (L), Radial (R) Skin: Warm, Dry, Intact Neurological: Reflexes Equal Bilateral, Strength Equal Bilateral, Normal Tone Neuro Extensive - Mental Status: Alert, Oriented x3, Normal Mood/Affect, Normal Cognition, Memory Intact Neuro Extensive - Motor, Sensory, Reflexes: Motor/Sensory Deficits Psychiatric: Alert, Normal Affect, Normal Mood - Patient Data Lab Results Last 24 hrs: Laboratory Results - last 24 hr 04/23/18 04/23/18 04/23/18 Range/Units 15:24 15:24 18:15 WBC 17.8 H (4.5-11.0) K/uL RBC 4.36 (3.30-5.50) M/uL Hgb 14.1 (12.0-15.0) g/dL Hct 41.0 (36.0-48.0) % MCV 94 (80-98) fL MCH 32 H (27-31) pg MCHC 34 (32-36) % Plt Count 223 (150-400) K/uL Neut % (Auto) 86 H (36-66) % Lymph % (Auto) 7 L (24-44) % Leon % (Auto) 7 H (2-6) % Eos % (Auto) 0 L (2-4) % Baso % (Auto) 0 (0-1) % Sodium 126 L (140-148) mmol/L Potassium 3.7 (3.6-5.2) mmol/L Chloride 89 L (100-108) mmol/L Carbon Dioxide 27 (21-32) mmol/L Anion Gap 13.7 (5.0-14.0) mmol/L BUN 16 (7-18) mg/dL Creatinine 1.3 H D (0.6-1.0) mg/dL Est Cr Clr Drug Dosing 39.16 mL/min Estimated GFR (MDRD) 40 L (>60) Glucose 151 H (74-106) mg/dL Lactic Acid 3.2 H (0.4-2.0) mmol/L Calcium 9.1 (8.5-10.1) mg/dL Result Diagrams: 04/23/18 15:24 04/23/18 15:24 *Q Meaningful Use (ADM) - VTE *Q VTE Pharmacological Contraindications *Q: Active Hemorrhage - Problem List (1) Colitis SNOMED Code(s): 94054018 ICD Code: K52.9 - NONINFECTIVE GASTROENTERITIS AND COLITIS, UNSPECIFIED Status: Acute Priority: High Current Visit: Yes (2) Hypertension SNOMED Code(s): 10756080 ICD Code: I10 - ESSENTIAL (PRIMARY) HYPERTENSION Status: Acute Priority: Low Current Visit: Yes Qualifiers: Hypertension type: essential hypertension Qualified Code(s): I10 - Essential (primary) hypertension Problem List Initiated/Reviewed/Updated: Yes Orders Last 24hrs: Active Orders 24 hr Category Date Time Status Patient Status [ADT] Routine ADT 04/23/18 18:53 Active Ambulate [RC] QID Care 04/23/18 18:53 Active Height and Weight [RC] DAILY Care 04/23/18 18:53 Active Intake and Output [RC] QSHIFT Care 04/23/18 18:53 Active Notify Provider Vital Signs [RC] ASDIRECTED Care 04/23/18 18:53 Active Oxygen Therapy [RC] PRN Care 04/23/18 18:53 Active Peripheral IV Care [RC] Q12H Care 04/23/18 18:53 Active Up With Assistance [RC] ASDIRECTED Care 04/23/18 18:53 Active Up to Chair [RC] QID Care 04/23/18 18:53 Active VTE/DVT Education [RC] Per Unit Routine Care 04/23/18 18:53 Active Vital Signs [RC] Q4H Care 04/23/18 18:53 Active Nothing per Oral Now Diet [DIET] Diet 04/23/18 Dinner Active Abdomen Pelvis w Cont [CT] Stat Exams 04/23/18 16:07 Taken BASIC METABOLIC PANEL,BMP [CHEM] AM Lab 04/24/18 05:11 Ordered CBC WITH AUTO DIFF [HEME] AM Lab 04/24/18 05:11 Ordered MAGNESIUM [CHEM] AM Lab 04/24/18 05:11 Ordered Acetaminophen [Tylenol] Med 04/23/18 18:53 Active 650 mg PO Q4H PRN Ciprofloxacin in D5W [Cipro in D5W 400 MG/200 ML] 400 Med 04/24/18 06:00 Active mg Premix Bag 1 bag IV Q12H Fluticasone Propionate [Flonase] Med 04/24/18 09:00 Active 0 gm KATARINA DAILY Lactobacillus Rhamnosus GG [Culturelle] Med 04/24/18 09:00 Active 1 cap PO DAILY Loratadine/Pseudoephedrine [Claritin-D 24HR] Med 04/24/18 09:00 Pending 1 tab PO DAILY Metoprolol Tartrate [Lopressor] Med 04/23/18 21:00 Active 25 mg PO BID Ondansetron [Zofran] Med 04/23/18 18:53 Active 4 mg IV Q4H PRN Ranitidine [Zantac] Med 04/23/18 21:00 Pending DOSE mg PO BID Sodium Chloride 0.9% [Normal Saline] 1,000 ml Med 04/23/18 18:53 Active IV ASDIRECTED Sodium Chloride 0.9% [Saline Flush] Med 04/23/18 18:53 Active 10 ml FLUSH ASDIRECTED PRN diphenhydrAMINE [Benadryl] Med 04/23/18 19:37 Active 25 mg PO BEDTIME PRN metroNIDAZOLE/Normal Saline [Flagyl 500 MG in NS 100 ML Med 04/23/18 20:00 Active ] 500 mg Premix Bag 1 bag IV Q8H oxyCODONE Med 04/23/18 18:53 Active 5 mg PO Q4H PRN Peripheral IV Insertion Adult [OM.PC] Routine Oth 04/23/18 18:53 Ordered Sequential Compression Device [OM.PC] Per Unit Routine Oth 04/23/18 18:53 Ordered VTE Pharmacological Contraindications [AST] Per Unit Oth 04/23/18 18:53 Ordered Routine Resuscitation Status Routine Resus Stat 04/23/18 17:58 Ordered Medication Orders Acetaminophen (Tylenol) 650 mg PO Q4H PRN PRN Reason: Pain (Mild 1-3)/fever Diphenhydramine HCl (Benadryl) 25 mg PO BEDTIME PRN PRN Reason: Insomnia Fluticasone Propionate (Flonase) 0 gm KATARINA DAILY [facility] Ciprofloxacin/Dextrose 400 mg/ (Premix) 200 mls @ 200 mls/hr IV Q12H JAVON Metronidazole 500 mg/ Premix 100 mls @ 100 mls/hr IV Q8H JAVON Sodium Chloride (Normal Saline) 1,000 mls @ 125 mls/hr IV ASDIRECTED JAVON Last Admin: 04/23/18 19:25 Dose: 125 mls/hr Lactobacillus Rhamnosus (Culturelle) 1 cap PO DAILY [facility] Metoprolol Tartrate (Lopressor) 25 mg PO BID [facility] Non-Formulary Medication (Loratadine/Pseudoephedrine [Claritin-D 24hr]) 1 tab PO DAILY [facility] Ondansetron HCl (Zofran) 4 mg IV Q4H PRN PRN Reason: Nausea/Vomiting Oxycodone HCl (Oxycodone) 5 mg PO Q4H PRN PRN Reason: Pain (moderate 4-6) Ranitidine HCl (Zantac) mg PO BID [facility] Sodium Chloride (Saline Flush) 10 ml FLUSH ASDIRECTED PRN PRN Reason: Keep Vein Open Assessment/Plan Comment:: Assessment/Plan Comment:: ASSESSMENT AND PLAN - 72-year-old female who was seen in ER yesterday for rectal bleeding, she made a call to her clinic this morning to talk to them about persistent bleeding and some cramping. They advised her to come back to the emergency room. She had no fevers, chills or bleeding overnight. This morning when she took a shower she had a few clots pass rectally. She is still having some intermittent lower abdominal cramping. No nausea or vomiting. Labs: CBC was repeated, hemoglobin is dropped from 15 to 14.1. WBC was elevated to 17,000. CT of the abdomen showed concentric quite severe descending colon inflammation and pelvic free fluid. I discussed this with surgery as well as the hospitalist service, and it was felt the patient likely has ischemic colitis or infectious colitis. A culture obtained yesterday shows no growth to this point. plan to admit to hospital for monitoring, IV fluids and IV antibiotics. Colitis -IV fluids Normal Saline at 125ml/hr -IV [id number] every 12 hours -IV Flagyl 500mg every 8 hours -PO Zantac bid -keep NPO, I&O -am labs: CBC, BMP, Magnesium Hypertension -Metoprolol 25mg po bid Maintenance issues - - DVT prophylaxis - contraindicated - GI prophylaxis - Zantac - Nutrition - NPO - Ruiz catheter - not indicated CODE STATUS - FULL Admission justification - This patient will be admitted for inpatient services and is medically appropriate meeting medical necessity for inpatient admission as outlined in my documentation. I reasonably expect the patient will require inpatient services that span a period time over 2 midnights. I reasonably expect this patient to be discharged or transferred within 96 hours [facility] Disposition - anticipate discharge to Home Primary care physician - Mariam Schneider NP Hospitalists: Garcia Chaparro M.D.
[2018-04-23] MEDS: Metoprolol Tartrate 25 MG Tab PO SCH (21:21)
[2018-04-23] MEDS: metroNIDAZOLE/Normal Saline 500 MG in Premix Bag 1 BAG IV SCH (21:21)
[2018-04-24] MEDS: Acetaminophen 325 MG Tab PO PRN ×2 (02:42→22:20)
[2018-04-24] MEDS: diphenhydrAMINE 25 MG Cap PO PRN ×2 (02:42→22:23)
[2018-04-24] MEDS: metroNIDAZOLE/Normal Saline 500 MG in Premix Bag 1 BAG IV SCH ×3 (03:15→20:28)
[2018-04-24] MEDS: Ciprofloxacin in D5W 400 MG in Premix Bag 1 BAG IV SCH ×4 (05:06→17:10)
[2018-04-24] MEDS: Sodium Chloride 0.9% 1,000 ML IV SCH (05:06)
[2018-04-24] MEDS ORDERED: Pseudoephedrine 30 MG Tab PO PRN (07:34)
[2018-04-24] MEDS: Magnesium Sulfate/Water 2 GM in Premix Bag 1 BAG IV SCH ×3 (08:55→21:44)
[2018-04-24] MEDS: Lactobacillus Rhamnosus GG (Probiotic) Cap PO SCH (08:55)
[2018-04-24] MEDS: Metoprolol Tartrate 25 MG Tab PO SCH ×2 (08:56→21:40)
[2018-04-24] MEDS ORDERED: PSEUDOEPHEDRINE PO SCH (09:00)
[2018-04-24] MEDS ORDERED: Loratadine 10 MG Tab PO SCH (09:00)
[2018-04-24] MEDS ORDERED: Fluticasone Propionate Nasal Spray 16 GM Bottle NAS SCH (09:00)
[2018-04-24] MEDS ORDERED: LORATADINE PO SCH (09:00)
--- NOTE | 2018-04-24 10:43 | PCM.PN ---
- General Info Date of Service: 04/24/18 Subjective Update: Ms. Bowen is a 72-year-old woman who is admitted through the emergency department last night with a 48 hour history of bloody diarrhea. White blood cell count was found to be elevated and CT scan showed evidence of colitis involving the transverse and descending colon. Most likely diagnosis felt to be ischemic colitis, less likely infectious colitis. She's felt improved since admission and has not had further diarrhea or hematochezia. Abdominal pain seems to be improving. - Review of Systems General: Denies: Fever, Chills Pulmonary: Reports: No Symptoms Cardiovascular: Reports: No Symptoms Gastrointestinal: Reports: Abdominal Pain. Denies: Diarrhea, Difficulty Swallowing, Hematochezia, Nausea, Vomiting - Patient Data Vitals - Most Recent: Last Vital Signs Temp 98.2 F 04/24/18 07:09 Pulse 85 04/24/18 08:56 Resp 16 04/24/18 07:09 BP 124/54 L 04/24/18 08:56 Pulse Ox 100 04/24/18 07:09 Weight - Most Recent: 143 lb 0.01 oz I&O - Last 24 Hours: Intake & Output 04/23/18 04/24/18 04/24/18 22:59 06:59 14:59 Intake Total 1261 50 Output Total 404 769 7961 Balance -175 561 -950 Lab Results Last 24 Hours: Laboratory Results - last 24 hr 04/23/18 04/23/18 04/23/18 Range/Units 15:24 15:24 18:15 WBC 17.8 H (4.5-11.0) K/uL RBC 4.36 (3.30-5.50) M/uL Hgb 14.1 (12.0-15.0) g/dL Hct 41.0 (36.0-48.0) % MCV 94 (80-98) fL MCH 32 H (27-31) pg MCHC 34 (32-36) % Plt Count 223 (150-400) K/uL Neut % (Auto) 86 H (36-66) % Lymph % (Auto) 7 L (24-44) % Bulloch % (Auto) 7 H (2-6) % Eos % (Auto) 0 L (2-4) % Baso % (Auto) 0 (0-1) % Sodium 126 L (140-148) mmol/L Potassium 3.7 (3.6-5.2) mmol/L Chloride 89 L (100-108) mmol/L Carbon Dioxide 27 (21-32) mmol/L Anion Gap 13.7 (5.0-14.0) mmol/L BUN 16 (7-18) mg/dL Creatinine 1.3 H D (0.6-1.0) mg/dL Est Cr Clr Drug Dosing 39.16 mL/min Estimated GFR (MDRD) 40 L (>60) Glucose 151 H (74-106) mg/dL Lactic Acid 3.2 H (0.4-2.0) mmol/L Calcium 9.1 (8.5-10.1) mg/dL Magnesium (1.8-2.4) mg/dL 04/24/18 04/24/18 Range/Units 04:45 04:45 WBC 15.2 H (4.5-11.0) K/uL RBC 3.86 (3.30-5.50) M/uL Hgb 12.6 (12.0-15.0) g/dL Hct 36.3 (36.0-48.0) % MCV 94 (80-98) fL MCH 33 H (27-31) pg MCHC 35 (32-36) % Plt Count 207 (150-400) K/uL Neut % (Auto) 77 H (36-66) % Lymph % (Auto) 12 L (24-44) % Bulloch % (Auto) 9 H (2-6) % Eos % (Auto) 1 L (2-4) % Baso % (Auto) 0 (0-1) % Sodium 129 L (140-148) mmol/L Potassium 3.4 L (3.6-5.2) mmol/L Chloride 95 L (100-108) mmol/L Carbon Dioxide 25 (21-32) mmol/L Anion Gap 12.4 (5.0-14.0) mmol/L BUN 8 (7-18) mg/dL Creatinine 0.9 (0.6-1.0) mg/dL Est Cr Clr Drug Dosing 56.41 mL/min Estimated GFR (MDRD) > 60 (>60) Glucose 99 (74-106) mg/dL Lactic Acid (0.4-2.0) mmol/L Calcium 8.0 L (8.5-10.1) mg/dL Magnesium 1.3 L (1.8-2.4) mg/dL Med Orders - Current: Current Medications Acetaminophen (Tylenol) 650 mg PO Q4H PRN PRN Reason: Pain (Mild 1-3)/fever Last Admin: 04/24/18 02:42 Dose: 650 mg Diphenhydramine HCl (Benadryl) 25 mg PO BEDTIME PRN PRN Reason: Insomnia Last Admin: 04/24/18 02:42 Dose: 25 mg Fluticasone Propionate (Flonase) 0 gm KATARINA QPM [facility] Ciprofloxacin/Dextrose 400 mg/ (Premix) 200 mls @ 200 mls/hr IV Q12H [facility] Last Admin: 04/24/18 05:06 Dose: 200 mls/hr Metronidazole 500 mg/ Premix 100 mls @ 100 mls/hr IV Q8H [facility] Last Admin: 04/24/18 03:15 Dose: 100 mls/hr Magnesium Sulfate 2 gm/ Premix 50 mls @ 25 mls/hr IV Q6H [facility] Stop: 04/24/18 22:59 Last Admin: 04/24/18 08:55 Dose: 25 mls/hr Potassium Chloride 20 meq/Lidocaine HCl 2 ml/ Sodium Chloride 112 mls @ 56 mls/ hr IV Q2H [facility] Stop: 04/24/18 13:59 Sodium Chloride (Normal Saline) 1,000 mls @ 75 mls/hr IV ASDIRECTED [facility] Lactobacillus Rhamnosus (Culturelle) 1 cap PO DAILY [facility] Last Admin: 04/24/18 08:55 Dose: 1 cap Loratadine (Claritin) 10 mg PO QPM [facility] Metoprolol Tartrate (Lopressor) 25 mg PO BID [facility] Last Admin: 04/24/18 08:56 Dose: 25 mg Ondansetron HCl (Zofran) 4 mg IV Q4H PRN PRN Reason: Nausea/Vomiting Oxycodone HCl (Oxycodone) 5 mg PO Q4H PRN PRN Reason: Pain (moderate 4-6) Pseudoephedrine HCl (Sudogest) 60 mg PO Q6H PRN PRN Reason: CONGESTION Ranitidine HCl (Zantac) 150 mg PO BID [facility] Last Admin: 04/24/18 08:56 Dose: 150 mg Sodium Chloride (Saline Flush) 10 ml FLUSH ASDIRECTED PRN PRN Reason: Keep Vein Open Discontinued Medications Fluticasone Propionate (Flonase) 0 gm KATARINA DAILY [facility] Sodium Chloride (Normal Saline) 70 mls @ 3 mls/sec IV ONETIME ONE Stop: 04/23/18 16:18 Last Admin: 04/23/18 16:51 Dose: 3 mls/sec Sodium Chloride (Normal Saline) 1,000 mls @ 1,000 mls/hr IV ASDIRECTED [facility] Last Admin: 04/23/18 16:52 Dose: 1,000 mls/hr Ciprofloxacin/Dextrose 400 mg/ (Premix) 200 mls @ 200 mls/hr IV ONETIME ONE Stop: 04/23/18 18:52 Last Admin: 04/23/18 18:08 Dose: 200 mls/hr Sodium Chloride (Normal Saline) 1,000 mls @ 125 mls/hr IV ASDIRECTED [facility] Last Admin: 04/24/18 05:06 Dose: 125 mls/hr Iopamidol (Isovue-300 (61%)) 100 ml IV . DIRECTED [facility] Stop: 04/23/18 20:00 Last Admin: 04/23/18 16:51 Dose: 96 ml Loratadine (Claritin) 10 mg PO DAILY [facility] Sodium Chloride (Saline Flush) 10 ml FLUSH ONETIME ONE Stop: 04/23/18 16:18 Last Admin: 04/23/18 16:51 Dose: 10 ml - Exam Quality Assessment: DVT Prophylaxis General: Alert, Oriented, Cooperative, No Acute Distress Lungs: Clear to Auscultation, Normal Respiratory Effort Cardiovascular: Regular Rate, Regular Rhythm, No Murmurs GI/Abdominal Exam: Soft, No Organomegaly, Tender. No: Distended, Guarding, Rigid, Rebound Extremities: Non-Tender, No Pedal Edema - Problem List Review Problem List Initiated/Reviewed/Updated: Yes - My Orders Last 24 Hours: My Active Orders 04/23/18 17:58 Resuscitation Status Routine 04/23/18 18:53 Patient Status [ADT] Routine Ambulate [RC] QID Height and Weight [RC] DAILY Intake and Output [RC] QSHIFT Notify Provider Vital Signs [RC] ASDIRECTED Oxygen Therapy [RC] PRN Peripheral IV Care [RC] Q12H Up With Assistance [RC] ASDIRECTED Up to Chair [RC] QID VTE/DVT Education [RC] Per Unit Routine Vital Signs [RC] Q4H Acetaminophen [Tylenol] 650 mg PO Q4H PRN Ondansetron [Zofran] 4 mg IV Q4H PRN Sodium Chloride 0.9% [Saline Flush] 10 ml FLUSH ASDIRECTED PRN oxyCODONE 5 mg PO Q4H PRN Peripheral IV Insertion Adult [OM.PC] Routine Sequential Compression Device [OM.PC] Per Unit Routine VTE Pharmacological Contraindications [AST] Per Unit Routine 04/23/18 20:00 metroNIDAZOLE/Normal Saline [Flagyl 500 MG in NS 100 ML] 500 mg Premix Bag 1 bag IV Q8H 04/23/18 21:00 Metoprolol Tartrate [Lopressor] 25 mg PO BID 04/23/18 Dinner Nothing per Oral Now Diet [DIET] 04/24/18 06:00 Ciprofloxacin in D5W [Cipro in D5W 400 MG/200 ML] 400 mg Premix Bag 1 bag IV Q12H 04/24/18 07:34 Pseudoephedrine [Sudogest] 60 mg PO Q6H PRN 04/24/18 09:00 Lactobacillus Rhamnosus GG [Culturelle] 1 cap PO DAILY Magnesium Sulfate/Water [Magnesium Sulfate 2 GM in Water 50 ML] 2 gm Premix Bag 1 bag IV Q6H Ranitidine [Zantac] 150 mg PO BID 04/24/18 10:00 Potassium Chloride 20 meq Lidocaine 1% [Xylocaine 1%] 2 ml Sodium Chloride 0.9 % [Normal Saline] 100 ml IV Q2H 04/24/18 10:45 Sodium Chloride 0.9% @ 75 MLS/HR(1000ml) Sodium Chloride 0.9% [Normal Saline] 1 ,000 ml IV ASDIRECTED 04/24/18 17:00 Fluticasone Propionate [Flonase] 0 gm KATARINA QPM Loratadine [Claritin] 10 mg PO QPM 04/25/18 05:00 BASIC METABOLIC PANEL,BMP [CHEM] Timed CBC WITH AUTO DIFF [HEME] Timed MAGNESIUM [CHEM] Timed - Plan Plan:: ASSESSMENT AND PLAN Ischemic colitis-S likely infectious colitis causing diarrhea and hematochezia. Modestly improved since admission with no further diarrhea or blood in the stool. Vital signs have been stable and she has remained afebrile -IV fluids Normal Saline at 75ml/hr -IV [id number] every 12 hours -IV Flagyl 500mg every 8 hours -PO Zantac bid -keep NPO, I&O -am labs: CBC, BMP, Magnesium Hypertension -Metoprolol 25mg po bid Maintenance issues - - DVT prophylaxis - contraindicated - GI prophylaxis - Zantac - Nutrition - NPO - Ruiz catheter - not indicated CODE STATUS - FULL Admission justification - This patient will be admitted for inpatient services and is medically appropriate meeting medical necessity for inpatient admission as outlined in my documentation. I reasonably expect the patient will require inpatient services that span a period time over 2 midnights. I reasonably expect this patient to be discharged or transferred within 96 hours after admission to the [facility]. Disposition - anticipate discharge to Home Primary care physician - Mariam Schneider NP Hospitalists: Garcia Chaparro M.D.
[2018-04-24] MEDS ORDERED: Sodium Chloride 0.9% 1,000 ML IV SCH (10:45)
[2018-04-24] MEDS: Potassium Chloride 20 MEQ, Lidocaine 1% 2 ML in Sodium Chloride 0.9% 100 ML IV SCH ×2 (11:00→13:13)
[2018-04-24] MEDS: Fluticasone Propionate Nasal Spray 16 GM Bottle NAS SCH (17:05)
[2018-04-24] MEDS: Loratadine 10 MG Tab PO SCH (17:06)
--- NOTE | 2018-04-24 20:34 | PCM.SN ---
- Free Text/Narrative Note: time: 20:30 S: complaints of back pain, chronic O: applying ice pack to spine for comfort A: back pain P; trial Lidocaine 5% patch as directed continue present plan of care.
[2018-04-24] MEDS: Lidocaine 5% 700 MG Patch TOP SCH (21:50)
[2018-04-25] MEDS: metroNIDAZOLE/Normal Saline 500 MG in Premix Bag 1 BAG IV SCH ×3 (04:42→20:23)
[2018-04-25] MEDS: Ciprofloxacin in D5W 400 MG in Premix Bag 1 BAG IV SCH ×4 (05:38→18:05)
[2018-04-25] MEDS: Lactobacillus Rhamnosus GG (Probiotic) Cap PO SCH (08:49)
[2018-04-25] MEDS: Metoprolol Tartrate 25 MG Tab PO SCH ×2 (08:50→21:26)
--- NOTE | 2018-04-25 13:13 | PCM.PN ---
- General Info Date of Service: 04/25/18 Subjective Update: Ms. Bowen is done well over the last 24 hours with decreased abdominal pain. She's had only one bowel movement movement do did have some blood in it, earlier this morning. Vital signs have remained stable and she has been afebrile. Functional Status: Reports: Pain Controlled, Ambulating, Urinating - Review of Systems General: Denies: Fever, Chills Pulmonary: Reports: No Symptoms Cardiovascular: Reports: No Symptoms Gastrointestinal: Reports: Abdominal Pain, Diarrhea, Hematochezia. Denies: Difficulty Swallowing, Melena, Nausea, Vomiting - Patient Data Vitals - Most Recent: Last Vital Signs Temp 97.3 F 04/25/18 10:52 Pulse 64 04/25/18 10:52 Resp 12 04/25/18 10:52 BP 150/69 H 04/25/18 10:52 Pulse Ox 100 04/25/18 10:52 Weight - Most Recent: 134 lb 12.8 oz I&O - Last 24 Hours: Intake & Output 04/24/18 04/25/18 04/25/18 22:59 06:59 14:59 Intake Total 1542 1015 Output Total 1400 1100 Balance 142 -85 Lab Results Last 24 Hours: Laboratory Results - last 24 hr 04/25/18 04/25/18 Range/Units 05:00 05:20 WBC 14.3 H (4.5-11.0) K/uL RBC 3.97 (3.30-5.50) M/uL Hgb 13.2 (12.0-15.0) g/dL Hct 37.7 (36.0-48.0) % MCV 95 (80-98) fL MCH 33 H (27-31) pg MCHC 35 (32-36) % Plt Count 232 (150-400) K/uL Neut % (Auto) 75 H (36-66) % Lymph % (Auto) 14 L (24-44) % [place] % (Auto) 9 H (2-6) % Eos % (Auto) 2 (2-4) % Baso % (Auto) 1 (0-1) % Sodium 133 L (140-148) mmol/L Potassium 3.7 (3.6-5.2) mmol/L Chloride 99 L (100-108) mmol/L Carbon Dioxide 21 (21-32) mmol/L Anion Gap 16.7 H (5.0-14.0) mmol/L BUN 6 L (7-18) mg/dL Creatinine 0.7 (0.6-1.0) mg/dL Est Cr Clr Drug Dosing 72.53 mL/min Estimated GFR (MDRD) > 60 (>60) Glucose 69 L (74-106) mg/dL Calcium 7.5 L (8.5-10.1) mg/dL Magnesium 2.9 H D (1.8-2.4) mg/dL Med Orders - Current: Current Medications Acetaminophen (Tylenol) 650 mg PO Q4H PRN PRN Reason: Pain (Mild 1-3)/fever Last Admin: 04/24/18 22:20 Dose: 650 mg Diphenhydramine HCl (Benadryl) 25 mg PO BEDTIME PRN PRN Reason: Insomnia Last Admin: 04/24/18 22:23 Dose: 25 mg Fluticasone Propionate (Flonase) 0 gm KATARINA QPM [facility] Last Admin: 04/24/18 17:05 Dose: 1 spray Ciprofloxacin/Dextrose 400 mg/ (Premix) 200 mls @ 200 mls/hr IV Q12H [facility] Last Admin: 04/25/18 05:38 Dose: 200 mls/hr Metronidazole 500 mg/ Premix 100 mls @ 100 mls/hr IV Q8H [facility] Last Admin: 04/25/18 12:28 Dose: 100 mls/hr Lactobacillus Rhamnosus (Culturelle) 1 cap PO DAILY [facility] Last Admin: 04/25/18 08:49 Dose: 1 cap Lidocaine (Lidoderm 5%) 700 mg TOP BEDTIME [facility] Last Admin: 04/24/18 21:50 Dose: 700 mg Loratadine (Claritin) 10 mg PO QPM [facility] Last Admin: 04/24/18 17:06 Dose: 10 mg Metoprolol Tartrate (Lopressor) 25 mg PO BID [facility] Last Admin: 04/25/18 08:50 Dose: 25 mg Miscellaneous Information (Remove Patch) 1 ea TRDERM DAILY [facility] Last Admin: 04/25/18 08:50 Dose: 1 ea Ondansetron HCl (Zofran) 4 mg IV Q4H PRN PRN Reason: Nausea/Vomiting Oxycodone HCl (Oxycodone) 5 mg PO Q4H PRN PRN Reason: Pain (moderate 4-6) Pseudoephedrine HCl (Sudogest) 60 mg PO Q6H PRN PRN Reason: CONGESTION Ranitidine HCl (Zantac) 150 mg PO BID [facility] Last Admin: 04/25/18 08:50 Dose: 150 mg Sodium Chloride (Saline Flush) 10 ml FLUSH ASDIRECTED PRN PRN Reason: Keep Vein Open Discontinued Medications Fluticasone Propionate (Flonase) 0 gm KATARINA DAILY [facility] Sodium Chloride (Normal Saline) 70 mls @ 3 mls/sec IV ONETIME ONE Stop: 04/23/18 16:18 Last Admin: 04/23/18 16:51 Dose: 3 mls/sec Sodium Chloride (Normal Saline) 1,000 mls @ 1,000 mls/hr IV ASDIRECTED [facility] Last Admin: 04/23/18 16:52 Dose: 1,000 mls/hr Ciprofloxacin/Dextrose 400 mg/ (Premix) 200 mls @ 200 mls/hr IV ONETIME ONE Stop: 04/23/18 18:52 Last Admin: 04/23/18 18:08 Dose: 200 mls/hr Sodium Chloride (Normal Saline) 1,000 mls @ 125 mls/hr IV ASDIRECTED [facility] Last Infusion: 04/24/18 14:00 Dose: Infused Magnesium Sulfate 2 gm/ Premix 50 mls @ 25 mls/hr IV Q6H [facility] Stop: 04/24/18 22:59 Last Admin: 04/24/18 21:44 Dose: 25 mls/hr Potassium Chloride 20 meq/Lidocaine HCl 2 ml/ Sodium Chloride 112 mls @ 56 mls/ hr IV Q2H [facility] Stop: 04/24/18 13:59 Last Admin: 04/24/18 13:13 Dose: 56 mls/hr Sodium Chloride (Normal Saline) 1,000 mls @ 75 mls/hr IV ASDIRECTED [facility] Last Admin: 04/25/18 08:55 Dose: 75 mls/hr Iopamidol (Isovue-300 (61%)) 100 ml IV . DIRECTED [facility] Stop: 04/23/18 20:00 Last Admin: 04/23/18 16:51 Dose: 96 ml Loratadine (Claritin) 10 mg PO DAILY [facility] Sodium Chloride (Saline Flush) 10 ml FLUSH ONETIME ONE Stop: 04/23/18 16:18 Last Admin: 04/23/18 16:51 Dose: 10 ml - Exam Quality Assessment: DVT Prophylaxis General: Alert, Oriented, Cooperative, No Acute Distress Lungs: Clear to Auscultation, Normal Respiratory Effort Cardiovascular: Regular Rate, Regular Rhythm GI/Abdominal Exam: Soft, No Organomegaly, Tender. No: Distended, Guarding, Rigid, Rebound Extremities: Non-Tender, No Pedal Edema - Problem List Review Problem List Initiated/Reviewed/Updated: Yes - My Orders Last 24 Hours: My Active Orders 04/24/18 17:00 Fluticasone Propionate [Flonase] 0 gm KATARINA QPM Loratadine [Claritin] 10 mg PO QPM 04/25/18 11:49 Convert IV to Saline Lock [OM.PC] Routine 04/25/18 Lunch Clear Liquid Diet [DIET] 04/26/18 05:00 BASIC METABOLIC PANEL,BMP [CHEM] Timed CBC WITH AUTO DIFF [HEME] Timed - Plan Plan:: ASSESSMENT AND PLAN Ischemic colitis-less likely infectious colitis causing diarrhea and hematochezia. Improved since admission with only one bowel movement in the last 24 hours -Saline lock IV -IV [id number] every 12 hours -IV Flagyl 500mg every 8 hours -PO Zantac bid -Clear liquid diet Hypertension -Metoprolol 25mg po bid Maintenance issues - - DVT prophylaxis - contraindicated - GI prophylaxis - Zantac - Nutrition - NPO - Ruiz catheter - not indicated CODE STATUS - FULL Admission justification - This patient will be admitted for inpatient services and is medically appropriate meeting medical necessity for inpatient admission as outlined in my documentation. I reasonably expect the patient will require inpatient services that span a period time over 2 midnights. I reasonably expect this patient to be discharged or transferred within 96 hours after admission to the [facility]. Disposition - anticipate discharge to Home Primary care physician - Mariam Schneider NP Hospitalists: Garcia Chaparro M.D.
[2018-04-25] MEDS ORDERED: Melatonin 3 MG Tab PO PRN (17:34)
[2018-04-25] MEDS: Fluticasone Propionate Nasal Spray 16 GM Bottle NAS SCH (18:03)
[2018-04-25] MEDS: Loratadine 10 MG Tab PO SCH (18:04)
[2018-04-25] MEDS: Lidocaine 5% 700 MG Patch TOP SCH (21:24)
[2018-04-26] MEDS: Acetaminophen 325 MG Tab PO PRN ×2 (02:52→22:38)
[2018-04-26] MEDS: metroNIDAZOLE/Normal Saline 500 MG in Premix Bag 1 BAG IV SCH ×2 (04:20→13:05)
[2018-04-26] MEDS: Ciprofloxacin in D5W 400 MG in Premix Bag 1 BAG IV SCH ×2 (05:25)
[2018-04-26] MEDS ORDERED: Potassium Chloride 20 MEQ Tab.ER PO ONE (09:00)
[2018-04-26] MEDS: Lactobacillus Rhamnosus GG (Probiotic) Cap PO SCH (09:07)
[2018-04-26] MEDS: Metoprolol Tartrate 25 MG Tab PO SCH ×2 (09:08→21:45)
--- NOTE | 2018-04-26 14:01 | PCM.PN ---
- General Info Date of Service: 04/26/18 Subjective Update: Ms. Bowen has shown further improvement since yesterday, less abdominal pain with normalization of white blood cell count. Stools seem to be firming up with no evidence of blood. Continues to experience some mild intermittent cramping with eating. Functional Status: Reports: Pain Controlled, Ambulating, Urinating - Review of Systems General: Denies: Fever, Chills Pulmonary: Reports: No Symptoms Cardiovascular: Reports: No Symptoms Gastrointestinal: Reports: Abdominal Pain. Denies: Diarrhea, Difficulty Swallowing, Nausea, Vomiting - Patient Data Vitals - Most Recent: Last Vital Signs Temp 98.7 F 04/26/18 11:00 Pulse 63 04/26/18 11:00 Resp 18 04/26/18 11:00 BP 174/73 H 04/26/18 11:00 Pulse Ox 100 04/26/18 11:00 Weight - Most Recent: 136 lb 12.8 oz I&O - Last 24 Hours: Intake & Output 04/25/18 04/26/18 04/26/18 22:59 06:59 14:59 Intake Total 470 457 Output Total 300 Balance 470 457 -300 Lab Results Last 24 Hours: Laboratory Results - last 24 hr 04/26/18 04/26/18 Range/Units 05:44 05:44 WBC 10.0 (4.5-11.0) K/uL RBC 3.98 (3.30-5.50) M/uL Hgb 12.9 (12.0-15.0) g/dL Hct 37.5 (36.0-48.0) % MCV 94 (80-98) fL MCH 32 H (27-31) pg MCHC 34 (32-36) % Plt Count 258 (150-400) K/uL Neut % (Auto) 66 (36-66) % Lymph % (Auto) 19 L (24-44) % [place] % (Auto) 12 H (2-6) % Eos % (Auto) 3 (2-4) % Baso % (Auto) 1 (0-1) % Sodium 134 L (140-148) mmol/L Potassium 3.4 L (3.6-5.2) mmol/L Chloride 99 L (100-108) mmol/L Carbon Dioxide 24 (21-32) mmol/L Anion Gap 14.4 H (5.0-14.0) mmol/L BUN 6 L (7-18) mg/dL Creatinine 0.8 (0.6-1.0) mg/dL Est Cr Clr Drug Dosing 63.16 mL/min Estimated GFR (MDRD) > 60 (>60) Glucose 112 H (74-106) mg/dL Calcium 7.8 L (8.5-10.1) mg/dL Med Orders - Current: Current Medications Acetaminophen (Tylenol) 650 mg PO Q4H PRN PRN Reason: Pain (Mild 1-3)/fever Last Admin: 04/26/18 02:52 Dose: 650 mg Ciprofloxacin (Ciprofloxacin Hcl) 500 mg PO BID [facility] Diphenhydramine HCl (Benadryl) 25 mg PO BEDTIME PRN PRN Reason: Insomnia Last Admin: 04/24/18 22:23 Dose: 25 mg Fluticasone Propionate (Flonase) 0 gm KATARINA QPM [facility] Last Admin: 04/25/18 18:03 Dose: 1 spray Lactobacillus Rhamnosus (Culturelle) 1 cap PO DAILY [facility] Last Admin: 04/26/18 09:07 Dose: 1 cap Lidocaine (Lidoderm 5%) 700 mg TOP BEDTIME [facility] Last Admin: 04/25/18 21:24 Dose: 700 mg Loratadine (Claritin) 10 mg PO QPM [facility] Last Admin: 04/25/18 18:04 Dose: 10 mg Melatonin (Melatonin) 3 mg PO BEDTIME PRN PRN Reason: Insomnia Last Admin: 04/25/18 22:07 Dose: 3 mg Metoprolol Tartrate (Lopressor) 25 mg PO BID [facility] Last Admin: 04/26/18 09:08 Dose: 25 mg Metronidazole (Metronidazole) 250 mg PO Q8H [facility] Miscellaneous Information (Remove Patch) 1 ea TRDERM DAILY [facility] Last Admin: 04/26/18 09:08 Dose: Not Given Ondansetron HCl (Zofran) 4 mg IV Q4H PRN PRN Reason: Nausea/Vomiting Oxycodone HCl (Oxycodone) 5 mg PO Q4H PRN PRN Reason: Pain (moderate 4-6) Pseudoephedrine HCl (Sudogest) 60 mg PO Q6H PRN PRN Reason: CONGESTION Ranitidine HCl (Zantac) 150 mg PO BID [facility] Last Admin: 04/26/18 09:07 Dose: 150 mg Sodium Chloride (Saline Flush) 10 ml FLUSH ASDIRECTED PRN PRN Reason: Keep Vein Open Discontinued Medications Fluticasone Propionate (Flonase) 0 gm KATARINA DAILY [facility] Sodium Chloride (Normal Saline) 70 mls @ 3 mls/sec IV ONETIME ONE Stop: 04/23/18 16:18 Last Admin: 04/23/18 16:51 Dose: 3 mls/sec Sodium Chloride (Normal Saline) 1,000 mls @ 1,000 mls/hr IV ASDIRECTED [facility] Last Admin: 04/23/18 16:52 Dose: 1,000 mls/hr Ciprofloxacin/Dextrose 400 mg/ (Premix) 200 mls @ 200 mls/hr IV ONETIME ONE Stop: 04/23/18 18:52 Last Admin: 04/23/18 18:08 Dose: 200 mls/hr Ciprofloxacin/Dextrose 400 mg/ (Premix) 200 mls @ 200 mls/hr IV Q12H [facility] Last Admin: 04/26/18 05:25 Dose: 200 mls/hr Metronidazole 500 mg/ Premix 100 mls @ 100 mls/hr IV Q8H [facility] Last Admin: 04/26/18 13:05 Dose: 100 mls/hr Sodium Chloride (Normal Saline) 1,000 mls @ 125 mls/hr IV ASDIRECTED [facility] Last Infusion: 04/24/18 14:00 Dose: Infused Magnesium Sulfate 2 gm/ Premix 50 mls @ 25 mls/hr IV Q6H [facility] Stop: 04/24/18 22:59 Last Admin: 04/24/18 21:44 Dose: 25 mls/hr Potassium Chloride 20 meq/Lidocaine HCl 2 ml/ Sodium Chloride 112 mls @ 56 mls/ hr IV Q2H [facility] Stop: 04/24/18 13:59 Last Admin: 04/24/18 13:13 Dose: 56 mls/hr Sodium Chloride (Normal Saline) 1,000 mls @ 75 mls/hr IV ASDIRECTED [facility] Last Admin: 04/25/18 08:55 Dose: 75 mls/hr Iopamidol (Isovue-300 (61%)) 100 ml IV . DIRECTED [facility] Stop: 04/23/18 20:00 Last Admin: 04/23/18 16:51 Dose: 96 ml Loratadine (Claritin) 10 mg PO DAILY [facility] Potassium Chloride (Klor-Con M20) 40 meq PO ONETIME ONE Stop: 04/26/18 09:01 Last Admin: 04/26/18 09:06 Dose: 40 meq Sodium Chloride (Saline Flush) 10 ml FLUSH ONETIME ONE Stop: 04/23/18 16:18 Last Admin: 04/23/18 16:51 Dose: 10 ml - Exam Quality Assessment: DVT Prophylaxis General: Alert, Oriented, Cooperative, No Acute Distress Lungs: Clear to Auscultation, Normal Respiratory Effort Cardiovascular: Regular Rate, Regular Rhythm GI/Abdominal Exam: Soft, No Organomegaly, Tender. No: Distended, Guarding, Rigid, Rebound Extremities: Non-Tender, No Pedal Edema - Problem List Review Problem List Initiated/Reviewed/Updated: Yes - My Orders Last 24 Hours: My Active Orders 04/25/18 16:25 GLUCOSE POC LAB TO COLLECT [POC] Stat 04/25/18 17:34 Melatonin 3 mg PO BEDTIME PRN 04/25/18 Dinner Soft Diet [DIET] 04/26/18 14:00 metroNIDAZOLE 250 mg PO Q8H 04/26/18 21:00 Ciprofloxacin [Ciprofloxacin HCl] 500 mg PO BID - Plan Plan:: ASSESSMENT AND PLAN Ischemic colitis-less likely infectious colitis causing diarrhea and hematochezia. Goals more firm with no evidence of blood. White blood cell count normalized -Saline lock IV -Ciprofloxacin 500 mg by mouth twice a day -Vital 250 mg by mouth every 8 hours -PO Zantac bid -Soft mechanical diet Hypertension -Metoprolol 25mg po bid Maintenance issues - - DVT prophylaxis - contraindicated - GI prophylaxis - Zantac - Nutrition - NPO - Ruiz catheter - not indicated CODE STATUS - FULL Admission justification - This patient will be admitted for inpatient services and is medically appropriate meeting medical necessity for inpatient admission as outlined in my documentation. I reasonably expect the patient will require inpatient services that span a period time over 2 midnights. I reasonably expect this patient to be discharged or transferred within 96 hours [facility] Disposition - anticipate discharge to Home tomorrow Primary care physician - Mariam Schneider NP Hospitalists: Garcia Chaparro M.D.
[2018-04-26] MEDS ORDERED: Dimethicone 20%/Zinc Oxide 25% 56 GM Spray Bottle TOP PRN (17:00)
[2018-04-26] MEDS: Loratadine 10 MG Tab PO SCH (17:50)
[2018-04-26] MEDS: Fluticasone Propionate Nasal Spray 16 GM Bottle NAS SCH (17:50)
[2018-04-26] MEDS: Ciprofloxacin 500 MG Tab PO SCH (21:44)
[2018-04-26] MEDS: Lidocaine 5% 700 MG Patch TOP SCH (21:44)
[2018-04-26] MEDS: metroNIDAZOLE 250 MG Tab PO SCH (21:45)
[2018-04-26] MEDS ORDERED: Melatonin 3 MG Tab PO PRN (21:56)
[2018-04-27] MEDS: Lactobacillus Rhamnosus GG (Probiotic) Cap PO SCH (09:11)
[2018-04-27] MEDS: Ciprofloxacin 500 MG Tab PO SCH (09:11)
[2018-04-27] MEDS: Metoprolol Tartrate 25 MG Tab PO SCH (09:12)
--- NOTE | 2018-04-27 10:44 | PCM.DCSUM1 ---
Discharge Summary - Hospital Course Brief History: Ms. Bowen is a 72-year-old woman who is admitted through the emergency department with abdominal pain and bloody diarrhea secondary to ischemic colitis. - Discharge Data Discharge Date: 04/27/18 Discharge Disposition: Home, Self-Care 01 Condition: Fair - Discharge Diagnosis/Problem(s) (1) Acute ischemic colitis SNOMED Code(s): 72120695 ICD Code: K55.039 - ACUTE ISCHEMIA OF LARGE INTESTINE, EXTENT UNSPECIFIED Status: Acute Current Visit: Yes (2) Diarrhea SNOMED Code(s): 84253290 ICD Code: R19.7 - DIARRHEA, UNSPECIFIED Status: Acute Current Visit: No Qualifiers: Diarrhea type: presumed infectious Qualified Code(s): R19.7 - Diarrhea, unspecified - Patient Summary/Data Hospital Course: Ms. Bowen is a 72-year-old female who was seen in ER on the day prior to admission for rectal bleeding, she made a call to her clinic on the morning of admission, to talk to them about persistent bleeding and some cramping. They advised her to come back to the emergency room. She had no fevers, chills or bleeding overnight. This morning when she took a shower she had a few clots pass rectally. She is still having some intermittent lower abdominal cramping. No nausea or vomiting. Labs: CBC was repeated, hemoglobin is dropped from 15 to 14.1. WBC was elevated to 17,000. CT of the abdomen showed concentric quite severe descending colon inflammation and pelvic free fluid. I discussed this with surgery as well as the hospitalist service, and it was felt the patient likely has ischemic colitis or infectious colitis. A culture obtained yesterday shows no growth to this point. On admission she was given IV fluids for hydration and kept nothing by mouth. Antibiotic therapy was initiated with IV ciprofloxacin as well as metronidazole. Over the next 4 days of hospitalization she experienced progressive improvement in symptoms with resolution of diarrhea, hematochezia, and abdominal discomfort. By the time of discharge she was tolerating a soft diet and was up walking in the hallways without significant difficulty. Activity will be as tolerated and she will remain on a soft residue diet over the next 7 days. Follow-up outpatient colonoscopy should be scheduled in one month and a follow-up appointment with primary care provider will be scheduled within the next week. If she notes any recurrence of symptoms she will return immediately to the emergency department for reassessment. - Patient Instructions Diet: GI Soft/Low Residue/Low Fiber (For 7 days) Activity: As Tolerated Other/Special Instructions: Please schedule follow-up appointment with primary care provider within one week. Please schedule outpatient colonoscopy in one month. - Discharge Plan *PRESCRIPTION DRUG MONITORING PROGRAM REVIEWED*: Not Applicable *COPY OF PRESCRIPTION DRUG MONITORING REPORT IN PATIENT [place]: Not Applicable Prescriptions/Med Rec: Amoxicillin/Potassium Clav [Augmentin 875-125 Tablet] 1 each PO BID #6 tablet Home Medications: Home Meds Alendronate Sodium [Fosamax] 70 mg PO .WEEKLY 06/10/13 [History] Aspirin 325 mg PO DAILY 06/10/13 [History] Calcium Citrate/Vitamin D3 [Calcium Cit-Vit D 315-200] 2 each PO DAILY 06/10/13 [History] Cholecalciferol (Vitamin D3) [Vitamin D3] 1,000 units PO DAILY 06/10/13 [History ] Folic Acid/Mv,Fe,Min [Centrum Multivitamin] 1 each PO DAILY 06/10/13 [History] Lactobacillus Combination No.4 [Probiotic] 1 each PO DAILY 06/10/13 [History] Loratadine/Pseudoephedrine [Claritin-D 24HR] 1 tab PO DAILY 06/10/13 [History] Metoprolol Tartrate [Lopressor] 25 mg PO BID 06/10/13 [History] Mineral Oil/Petrolatum,White [Refresh Lacri-Lube] 3.5 gm OP BEDTIME 07/25/14 [ History] Fluticasone Propionate [Flonase] 1 spray KATARINA DAILY 04/22/18 [History] Ranitidine HCl [Ranitidine] 1 tab PO BID 04/22/18 [History] Carboxymethylcellulose Sodium [Thera Tears] 1 drop OP Q4HR PRN 04/24/18 [History ] Sodium Chloride [Nasal Moisturizing] 44 ml NS ASDIRECTED PRN 04/24/18 [History] Amoxicillin/Potassium Clav [Augmentin 875-125 Tablet] 1 each PO BID #6 tablet [Rx] Patient Handouts: Soft-Food Eating Plan Referrals: Danita Schneider CNM [Primary Care Provider] - - Discharge Summary/Plan Comment DC Time >30 min.: No - Patient Data Vitals - Most Recent: Last Vital Signs Temp 99.2 F 04/27/18 06:54 Pulse 86 04/27/18 09:12 Resp 18 04/27/18 06:54 BP 166/87 H 04/27/18 09:12 Pulse Ox 98 04/27/18 06:54 Weight - Most Recent: 136 lb 12.8 oz I&O - Last 24 hours: Intake & Output 04/26/18 04/27/18 04/27/18 22:59 06:59 14:59 Intake Total 300 Balance 300 Med Orders - Current: Current Medications Acetaminophen (Tylenol) 650 mg PO Q4H PRN PRN Reason: Pain (Mild 1-3)/fever Last Admin: 04/26/18 22:38 Dose: 650 mg Ciprofloxacin (Ciprofloxacin Hcl) 500 mg PO BID [facility] Last Admin: 04/27/18 09:11 Dose: 500 mg Dimethicone/Zinc Oxide (Rash Relief-Zinc Oxide [place]) 0 gm TOP ASDIRECTED PRN PRN Reason: Pain Diphenhydramine HCl (Benadryl) 25 mg PO BEDTIME PRN PRN Reason: Insomnia Last Admin: 04/24/18 22:23 Dose: 25 mg Fluticasone Propionate (Flonase) 0 gm KATARINA QPM [facility] Last Admin: 04/26/18 17:50 Dose: 1 spray Lactobacillus Rhamnosus (Culturelle) 1 cap PO DAILY [facility] Last Admin: 04/27/18 09:11 Dose: 1 cap Lidocaine (Lidoderm 5%) 700 mg TOP BEDTIME [facility] Last Admin: 04/26/18 21:44 Dose: 700 mg Loratadine (Claritin) 10 mg PO QPM [facility] Last Admin: 04/26/18 17:50 Dose: 10 mg Melatonin (Melatonin) 6 mg PO BEDTIME PRN PRN Reason: Insomnia Last Admin: 04/26/18 22:37 Dose: 6 mg Metoprolol Tartrate (Lopressor) 25 mg PO BID [facility] Last Admin: 04/27/18 09:12 Dose: 25 mg Metronidazole (Metronidazole) 250 mg PO Q8H [facility] Last Admin: 04/26/18 21:45 Dose: 250 mg Miscellaneous Information (Remove Patch) 1 ea TRDERM DAILY [facility] Last Admin: 04/27/18 09:12 Dose: Not Given Ondansetron HCl (Zofran) 4 mg IV Q4H PRN PRN Reason: Nausea/Vomiting Oxycodone HCl (Oxycodone) 5 mg PO Q4H PRN PRN Reason: Pain (moderate 4-6) Pseudoephedrine HCl (Sudogest) 60 mg PO Q6H PRN PRN Reason: CONGESTION Ranitidine HCl (Zantac) 150 mg PO BID [facility] Last Admin: 04/27/18 09:12 Dose: 150 mg Sodium Chloride (Saline Flush) 10 ml FLUSH ASDIRECTED PRN PRN Reason: Keep Vein Open Discontinued Medications Fluticasone Propionate (Flonase) 0 gm KATARINA DAILY [facility] Sodium Chloride (Normal Saline) 70 mls @ 3 mls/sec IV ONETIME ONE Stop: 04/23/18 16:18 Last Admin: 04/23/18 16:51 Dose: 3 mls/sec Sodium Chloride (Normal Saline) 1,000 mls @ 1,000 mls/hr IV ASDIRECTED [facility] Last Admin: 04/23/18 16:52 Dose: 1,000 mls/hr Ciprofloxacin/Dextrose 400 mg/ (Premix) 200 mls @ 200 mls/hr IV ONETIME ONE Stop: 04/23/18 18:52 Last Admin: 04/23/18 18:08 Dose: 200 mls/hr Ciprofloxacin/Dextrose 400 mg/ (Premix) 200 mls @ 200 mls/hr IV Q12H [facility] Last Admin: 04/26/18 05:25 Dose: 200 mls/hr Metronidazole 500 mg/ Premix 100 mls @ 100 mls/hr IV Q8H [facility] Last Admin: 04/26/18 13:05 Dose: 100 mls/hr Sodium Chloride (Normal Saline) 1,000 mls @ 125 mls/hr IV ASDIRECTED [facility] Last Infusion: 04/24/18 14:00 Dose: Infused Magnesium Sulfate 2 gm/ Premix 50 mls @ 25 mls/hr IV Q6H [facility] Stop: 04/24/18 22:59 Last Admin: 04/24/18 21:44 Dose: 25 mls/hr Potassium Chloride 20 meq/Lidocaine HCl 2 ml/ Sodium Chloride 112 mls @ 56 mls/ hr IV Q2H [facility] Stop: 04/24/18 13:59 Last Admin: 04/24/18 13:13 Dose: 56 mls/hr Sodium Chloride (Normal Saline) 1,000 mls @ 75 mls/hr IV ASDIRECTED [facility] Last Admin: 04/25/18 08:55 Dose: 75 mls/hr Iopamidol (Isovue-300 (61%)) 100 ml IV . DIRECTED [facility] Stop: 04/23/18 20:00 Last Admin: 04/23/18 16:51 Dose: 96 ml Loratadine (Claritin) 10 mg PO DAILY [facility] Melatonin (Melatonin) 3 mg PO BEDTIME PRN PRN Reason: Insomnia Last Admin: 04/25/18 22:07 Dose: 3 mg Potassium Chloride (Klor-Con M20) 40 meq PO ONETIME ONE Stop: 04/26/18 09:01 Last Admin: 04/26/18 09:06 Dose: 40 meq Sodium Chloride (Saline Flush) 10 ml FLUSH ONETIME ONE Stop: 04/23/18 16:18 Last Admin: 04/23/18 16:51 Dose: 10 ml - Exam General: Reports: Alert, Oriented, Cooperative, No Acute Distress Lungs: Reports: Clear to Auscultation, Normal Respiratory Effort Cardiovascular: Reports: Regular Rate, Regular Rhythm, No Murmurs GI/Abdominal Exam: Soft, Non-Tender, No Organomegaly, No Distention *Q Meaningful Use (DIS) - VTE *Q VTE Pharmacological Contraindications *Q: Active Hemorrhage
[2018-04-27 11:10] VITALS: BP 141/76
[2018-04-27] MEDS: metroNIDAZOLE 250 MG Tab PO SCH (11:59)
== END 2018-04-27 13:24 | disposition home or self-care (01) | DRG 394 ==
LOC: JP.ED 14:29 → JP.MS 17:56
PROVIDERS: ADMIT Hospitalist; ATTEND Hospitalist
DX: K52.9 Noninfective gastroenteritis and colitis, unspecified (principal); K55.039 Acute (reversible) ischemia of large intestine, extent unspecified; K62.5 Hemorrhage of anus and rectum; I10 Essential (primary) hypertension; R19.7 Diarrhea, unspecified; M54.9 Dorsalgia, unspecified; G89.29 Other chronic pain; H54.7 Unspecified visual loss; Z91.040 Latex allergy status; Z88.2 Allergy status to sulfonamides; Z88.8 Allergy status to other drugs, medicaments and biological substances; Z79.82 Long term (current) use of aspirin
CPT/HCPCS: 36415; 74177; 80048; 85025; 96361; 99285; J7030 ×2; J7050; Q9967; 82962; 83605; 83735; 96365; A9270-GY; J0744; J3475; J3480; J3490

== ENCOUNTER 2019-04-17 07:32 | Day surgery (SDC) | payer MEDICARE, BC ==
[2019-04-17] MEDS ORDERED: Lactated Ringers 1,000 ML IV SCH (08:45)
[2019-04-17] MEDS ORDERED: fentaNYL 100 MCG/2 ML SDV ONE (08:56)
[2019-04-17] MEDS ORDERED: Propofol 200 MG/20 ML SDV ONE (08:56)
[2019-04-17 10:09] VITALS: BP 181/96; PULSE 74
--- NOTE | 2019-04-17 11:22 | OR ---
DATE OF PROCEDURE: 04/17/2019 SURGEON: Louis Ocasio MD PREOPERATIVE DIAGNOSIS: Gastroesophageal reflux disease. POSTOPERATIVE DIAGNOSES: Gastroesophageal reflux disease. PROCEDURE PERFORMED: Esophagogastroduodenoscopy with biopsy of gastroesophageal junction. ANESTHESIA: IV anesthesia with monitored anesthesia care. INDICATION: This 73-year-old white female is referred for upper endoscopy because of heartburn. She has taken omeprazole, Zantac, and Tums. She has never had an upper endoscopy. I counseled her for upper endoscopy with possible biopsy, including risks and alternatives, and she gave her informed consent to proceed. DESCRIPTION OF PROCEDURE: The patient was placed in the left lateral decubitus position. IV anesthesia was administered by the Anesthesia Service. Time-out was held. The flexible video Olympus upper endoscope was passed through her mouth, down her esophagus, and into her stomach. The scope was easily passed through the pylorus and into the duodenum, reaching its third portion. The scope was then slowly withdrawn, examining the mucosa throughout. The duodenal mucosa appeared unremarkable. The scope was brought back through the pylorus into the antrum. This appeared unremarkable. The scope was retroflexed. The proximal stomach appeared unremarkable. The scope was straightened and brought up to the GE junction. This was abnormal in that the Z-line was not straight with fingers of gastric mucosa going proximally up into the esophagus. We obtained multiple, totalling at least 6, biopsies of the gastroesophageal junction. The scope was then brought proximally up through the remainder of the esophagus, which otherwise appeared unremarkable and it was removed. She tolerated the procedure well. Louis Ocasio MD /[id number]
== END 2019-04-17 10:36 | disposition home or self-care (01) ==
LOC: JP.SDS 07:32
PROVIDERS: ATTEND Surgery
DX: K21.0 Gastro-esophageal reflux disease with esophagitis (principal); K58.9 Irritable bowel syndrome, unspecified; I10 Essential (primary) hypertension; Z88.2 Allergy status to sulfonamides; Z88.8 Allergy status to other drugs, medicaments and biological substances; Z91.040 Latex allergy status
CPT/HCPCS: 43239; J2704; J3010; J7120; 88305

== ENCOUNTER 2019-10-15 06:33 | Day surgery (SDC) | payer MEDICARE, BC ==
[2019-10-15] MEDS ORDERED: Lidocaine 1% with EPINEPHrine 1:100,000 50 ML MDV ONE (06:43)
[2019-10-15] MEDS ORDERED: Bacitracin Oint 1 GM U/D Packet ONE (06:43)
[2019-10-15] MEDS ORDERED: Lidocaine 0.5% 50 ML SDV ONE (07:37)
[2019-10-15] MEDS ORDERED: Sodium Chloride 0.9% 1,000 ML IV SCH (08:00)
[2019-10-15] MEDS ORDERED: Midazolam 1 MG/ML 2 ML SDV ONE (08:14)
[2019-10-15 10:29] VITALS: PULSE 82
[2019-10-15 10:31] VITALS: BP 152/98
--- NOTE | 2019-10-15 10:38 | OR ---
DATE OF PROCEDURE: 10/15/2019 SURGEON: Saleem Banks MD PROCEDURE: Left carpal tunnel release. COMPLICATIONS: None. CLAIM SPECIALIST: None. ANESTHETIC: Geetha/local. RISKS: Risks, benefits, alternatives, and limitations including, but not limited to infection, bleeding, and injury to median nerve and its branches, along with other risks not listed here, were explained to the patient, who wished to proceed. PROCEDURE IN DETAIL: The patient was placed in a supine position. The left wrist was marked to classical anatomical line. The lateral aspect of the ring finger marked in the hamate, the thenar and hypothenar eminences. Incision was made and then carried down through the fat bluntly with a 15 blade. The flexor retinaculum was identified and was dissected bluntly. The median nerve could be identified. The dissection continued distally to the fat pad and then proximally. A groove director was also used during this process to further protect the median nerve and its associated branches. A finger sweep was also used to ensure complete transection of the carpal tunnel ligament. The 4-0 Prolene was then used to close the skin after irrigation. Approximately 5 mL of local was used. The patient tolerated the procedure well. Saleem Banks MD /[id number]
== END 2019-10-15 10:00 | disposition home or self-care (01) ==
LOC: JP.SDS 06:33
PROVIDERS: ATTEND Surgery
DX: G56.02 Carpal tunnel syndrome, left upper limb (principal); I10 Essential (primary) hypertension; Z87.891 Personal history of nicotine dependence; Z91.040 Latex allergy status
CPT/HCPCS: 64721; J2001; J7030; J2250

== ENCOUNTER 2020-08-12 10:52 | Emergency (ER) | payer MEDICARE, BC ==
[2020-08-12 11:11] VITALS: BP 144/97; PULSE 82
[2020-08-12] MEDS ORDERED: Oxymetazoline 0.05% Nasal Spray 30 ML Bottle NAS ONE (11:31)
--- NOTE | 2020-08-12 12:45 | EDM.PDOC ---
ED HPI GENERAL MEDICAL PROBLEM - General Chief Complaint: ENT Problem Stated Complaint: BLOODY NOSE Time Seen by Provider: 08/12/20 11:10 Source of Information: Reports: Patient History Limitations: Reports: No Limitations - History of Present Illness INITIAL COMMENTS - FREE TEXT/NARRATIVE: pt got up about 7 am and she started to have some bleeding from her rt nostril. She put pressure on it and it did not stop. She does not have a history of frequent nose bleeds. She is not on any thinners. Onset: Today, Sudden Duration: Hour(s): Location: Reports: Face Associated Symptoms: Reports: Other (nose bleed) - Related Data Allergies Allergy/AdvReac Type Severity Reaction Status Date / Time Latex, Natural Rubber Allergy Hives Verified 08/12/20 11:17 oxycodone Allergy Lethargy Verified 08/12/20 11:17 prednisone Allergy Hives Verified 08/12/20 11:17 Sulfa (Sulfonamide Allergy Nausea and Verified 08/12/20 11:17 Antibiotics) Vomiting steroids Allergy Hives Uncoded 08/12/20 11:17 Home Meds: Home Meds Calcium Citrate/Vitamin D3 [Calcium Cit-Vit D 315-200] 2 each PO BID 06/10/13 [History] Cholecalciferol (Vitamin D3) [Vitamin D3] 1,000 units PO DAILY 06/10/13 [History] Folic Acid/Mv,Fe,Min [Centrum Multivitamin] 1 each PO DAILY 06/10/13 [History] Lactobacillus Combination No.4 [Probiotic] 1 each PO DAILY 06/10/13 [History] Loratadine/Pseudoephedrine [Claritin-D 24HR] 1 tab PO DAILY 06/10/13 [History] Metoprolol Tartrate [Lopressor] 25 mg PO BID 06/10/13 [History] Fluticasone Propionate [Flonase] 1 spray KATARINA DAILY 04/22/18 [History] Fish Oil/DHA/EPA [Fish Oil 1,200 MG] 2 each PO DAILY 04/15/19 [History] Gabapentin [Neurontin] 100 mg PO BEDTIME 04/15/19 [History] Omeprazole 20 mg PO DAILY 04/15/19 [History] Psyllium with Sucrose [Metamucil] 1 each PO DAILY 04/15/19 [History] Triamcinolone Acetonide [Triamcinolone Acetonide 0.1% Crm] 1 dose TOP BID 04/17/19 [History] Albuterol Sulfate [Albuterol Sulfate Hfa] 1 - 2 puff IH Q4HR PRN 08/25/19 [History] Past Medical History HEENT History: Reports: Allergic Rhinitis, Cataract, Impaired Vision Cardiovascular History: Reports: Hypertension Respiratory History: Reports: None Gastrointestinal History: Reports: Gastritis, GI Bleed, Irritable Bowel Syndrome Genitourinary History: Reports: UTI, Recurrent PREVENTIVE MAINTENANCE COORDINATOR History: Reports: Dysfunctional Uterine Bleeding Musculoskeletal History: Reports: Fracture, Other (See Below) Other Musculoskeletal History: left ankle fracture 2012. shoulder impingment bilateral. trochanteric bursitis. metatarsalgia of right foot Neurological History: Reports: Migraines Psychiatric History: Reports: None Endocrine/Metabolic History: Reports: Osteopenia, Other (See Below) Other Endocrine/Metabolic History: hypoglycemia Hematologic History: Reports: None Immunologic History: Reports: None Oncologic (Cancer) History: Reports: None Dermatologic History: Reports: Eczema, Seborrheic Dermatitis - Infectious Disease History Infectious Disease History: Reports: Chicken Pox, Measles, Mumps - Past Surgical History Head Surgeries/Procedures: Reports: None HEENT Surgical History: Reports: None Cardiovascular Surgical History: Reports: None Respiratory Surgical History: Reports: None GI Surgical History: Reports: Appendectomy, Colonoscopy, EGD Female Surgical History: Reports: Hysterectomy Endocrine Surgical History: Reports: None Neurological Surgical History: Reports: None Musculoskeletal Surgical History: Reports: Carpal Tunnel Other Musculoskeletal Surgeries/Procedures:: cyst removed 1962, bunion surg right foot Oncologic Surgical History: Reports: None Dermatological Surgical History: Reports: Skin Biopsy Social & Family History - Family History Family Medical History: No Pertinent Family History - Tobacco Use Tobacco Use Status *Q: Never Tobacco User - Caffeine Use Caffeine Use: Reports: Soda Other Caffeine Use: 1 can a day - Living Situation & Occupation Living situation: Reports: , Alone 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 Exam Limited By: No Limitations General Appearance: Alert Nose: Other (pt has irritation over the septal area. She is oozing. She was sprayed with afrin and she continued to have some bleedin. A 7.5 rapid rhino was placed and 7 cc of air. She is being watched at this point. ) Mouth/Throat: Normal Inspection Head: Atraumatic Neck: Normal Inspection Respiratory/Chest: No Respiratory Distress Course - Vital Signs Last Recorded V/S: Last Vital Signs Temp 36.2 C 08/12/20 11:21 Pulse 82 08/12/20 11:21 Resp 16 08/12/20 11:21 BP 144/97 H 08/12/20 11:21 Pulse Ox 98 08/12/20 11:21 - Orders/Labs/Meds Orders: Active Orders 24 hr Category Date Time Status PTT,PARTIAL THROMBOPLSTIN TIME [COAG] Stat Lab 08/12/20 16:43 Received Labs: Laboratory Tests 08/12/20 Range/Units 17:07 WBC 10.8 (4.5-11.0) K/uL RBC 5.03 (3.30-5.50) M/uL Hgb 15.6 H D (12.0-15.0) g/dL Hct 47.2 (36.0-48.0) % MCV 94 (80-98) fL MCH 31 (27-31) pg MCHC 33 (32-36) % Plt Count 334 (150-400) K/uL Neut % (Auto) 76 H (36-66) % Lymph % (Auto) 17 L (24-44) % [place] % (Auto) 5 (2-6) % Eos % (Auto) 2 (2-4) % Baso % (Auto) 1 (0-1) % Meds: Medications Discontinued Medications Generic Name Dose Route Start Last Admin Trade Name Freq PRN Reason Stop Dose Admin Oxymetazoline HCl 1 ml 08/12/20 11:31 08/12/20 11:35 Nasal Decongestant [place] KATARINA 08/12/20 11:32 2 spray ONETIME ONE Administration - Re-Assessments/Exams Free Text/Narrative Re-Assessment/Exam: 08/12/20 18:08 pt was packed with a 7.5 rapid rhino. She was watched several hours and continued to ooze. It was pulled out and repacke . She continued to ooze but very little. Will give her a trial at home. Departure - Departure Time of Disposition: 18:09 Disposition: Home, Self-Care 01 Condition: Fair Clinical Impression: Nosebleed - Discharge Information Referrals: Danita Schneider CNM [Primary Care Provider] - Forms: ED Department Discharge Care Plan Goals: cool pack the nose, low activity, if pt has marked increase in bleeding rtc, remove nasal packing saturday. Sepsis Event Note (ED) - Evaluation Sepsis Screening Result: No Definite Risk - Focused Exam Vital Signs: Vital Signs Temp Pulse Resp BP Pulse Ox 08/12/20 11:21 36.2 C 82 16 144/97 H 98 08/12/20 11:09 36.2 C 82 16 144/97 H 98 - My Orders Last 24 Hours: My Active Orders 08/12/20 16:43 PTT,PARTIAL THROMBOPLSTIN TIME [COAG] Stat - Assessment/Plan Last 24 Hours: My Active Orders 08/12/20 16:43 PTT,PARTIAL THROMBOPLSTIN TIME [COAG] Stat
== END 2020-08-12 18:46 | disposition home or self-care (01) ==
LOC: JP.ED 10:52
DX: R04.0 Epistaxis (principal); I10 Essential (primary) hypertension; Z91.040 Latex allergy status; Z88.5 Allergy status to narcotic agent; Z88.2 Allergy status to sulfonamides; Z91.048 Other nonmedicinal substance allergy status; Z79.899 Other long term (current) drug therapy
CPT/HCPCS: 30901; 30903; 36415; 85025; 85730; 99282; 99283-25; A9270-GY

== ENCOUNTER 2020-08-15 10:39 | Emergency (ER) | payer MEDICARE, BC ==
[2020-08-15 11:01] VITALS: BP 117/52; PULSE 91
[2020-08-15] MEDS ORDERED: Oxymetazoline 0.05% Nasal Spray 30 ML Bottle NAS ONE ×2 (11:04→11:06)
[2020-08-15] MEDS ORDERED: Oxymetazoline 0.05% Nasal Spray 30 ML Bottle ONE (11:10)
--- NOTE | 2020-08-15 11:24 | EDM.PDOC ---
ED HPI GENERAL MEDICAL PROBLEM - General Chief Complaint: ENT Problem Time Seen by Provider: 08/15/20 11:21 Source of Information: Reports: Patient History Limitations: Reports: No Limitations - History of Present Illness INITIAL COMMENTS - FREE TEXT/NARRATIVE: pt has a nasal packing that was placed on Saturday. She is here today for removal of the packing. Duration: Hour(s): Location: Reports: Face Associated Symptoms: Reports: Other (nasal packing removal) - Related Data Allergies Allergy/AdvReac Type Severity Reaction Status Date / Time Latex, Natural Rubber Allergy Hives Verified 08/12/20 11:17 oxycodone Allergy Lethargy Verified 08/12/20 11:17 prednisone Allergy Hives Verified 08/12/20 11:17 Sulfa (Sulfonamide Allergy Nausea and Verified 08/12/20 11:17 Antibiotics) Vomiting steroids Allergy Hives Uncoded 08/12/20 11:17 Home Meds: Home Meds Calcium Citrate/Vitamin D3 [Calcium Cit-Vit D 315-200] 2 each PO BID 06/10/13 [History] Cholecalciferol (Vitamin D3) [Vitamin D3] 1,000 units PO DAILY 06/10/13 [History] Folic Acid/Mv,Fe,Min [Centrum Multivitamin] 1 each PO DAILY 06/10/13 [History] Lactobacillus Combination No.4 [Probiotic] 1 each PO DAILY 06/10/13 [History] Loratadine/Pseudoephedrine [Claritin-D 24HR] 1 tab PO DAILY 06/10/13 [History] Metoprolol Tartrate [Lopressor] 25 mg PO BID 06/10/13 [History] Fluticasone Propionate [Flonase] 1 spray KATARINA DAILY 04/22/18 [History] Fish Oil/DHA/EPA [Fish Oil 1,200 MG] 2 each PO DAILY 04/15/19 [History] Gabapentin [Neurontin] 100 mg PO BEDTIME 04/15/19 [History] Omeprazole 20 mg PO DAILY 04/15/19 [History] Psyllium with Sucrose [Metamucil] 1 each PO DAILY 04/15/19 [History] Triamcinolone Acetonide [Triamcinolone Acetonide 0.1% Crm] 1 dose TOP BID 04/17/19 [History] Albuterol Sulfate [Albuterol Sulfate Hfa] 1 - 2 puff IH Q4HR PRN 08/25/19 [History] Past Medical History HEENT History: Reports: Allergic Rhinitis, Cataract, Impaired Vision Cardiovascular History: Reports: Hypertension Respiratory History: Reports: None Gastrointestinal History: Reports: Gastritis, GI Bleed, Irritable Bowel Syndrome Genitourinary History: Reports: UTI, Recurrent CLINICAL RN MANAGER History: Reports: Dysfunctional Uterine Bleeding Musculoskeletal History: Reports: Fracture, Other (See Below) Other Musculoskeletal History: left ankle fracture 2012. shoulder impingment bilateral. trochanteric bursitis. metatarsalgia of right foot Neurological History: Reports: Migraines Psychiatric History: Reports: None Endocrine/Metabolic History: Reports: Osteopenia, Other (See Below) Other Endocrine/Metabolic History: hypoglycemia Hematologic History: Reports: None Immunologic History: Reports: None Oncologic (Cancer) History: Reports: None Dermatologic History: Reports: Eczema, Seborrheic Dermatitis - Infectious Disease History Infectious Disease History: Reports: Chicken Pox, Measles, Mumps - Past Surgical History Head Surgeries/Procedures: Reports: None HEENT Surgical History: Reports: None Cardiovascular Surgical History: Reports: None Respiratory Surgical History: Reports: None GI Surgical History: Reports: Appendectomy, Colonoscopy, EGD Female Surgical History: Reports: Hysterectomy Endocrine Surgical History: Reports: None Neurological Surgical History: Reports: None Musculoskeletal Surgical History: Reports: Carpal Tunnel Other Musculoskeletal Surgeries/Procedures:: cyst removed 1962, bunion surg right foot Oncologic Surgical History: Reports: None Dermatological Surgical History: Reports: Skin Biopsy Social & Family History - Family History Family Medical History: No Pertinent Family History - Caffeine Use Caffeine Use: Reports: Soda Other Caffeine Use: 1 can a day - Living Situation & Occupation Living situation: Reports: , Alone 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 ) ED EXAM, ENT - Physical Exam Exam: See Below Text/Narrative:: pt has a 7.[address] andthis was removed with no bleeding. Course - Vital Signs Last Recorded V/S: Last Vital Signs Temp 36.0 C L 08/15/20 10:59 Pulse 91 08/15/20 10:59 Resp 16 08/15/20 10:59 BP 117/52 L 08/15/20 10:59 Pulse Ox 99 08/15/20 10:59 - Orders/Labs/Meds Meds: Medications Discontinued Medications Generic Name Dose Route Start Last Admin Trade Name Cynthia PRN Reason Stop Dose Admin Oxymetazoline HCl 5 ml 08/15/20 11:06 08/15/20 11:13 Nasal Decongestant [place] KATARINA 08/15/20 11:07 Not Given ONETIME ONE Oxymetazoline HCl 1 ml 08/15/20 11:04 08/15/20 11:13 Nasal Decongestant [place] KATARINA 08/15/20 11:05 1 spray ONETIME ONE Administration - Re-Assessments/Exams Free Text/Narrative Re-Assessment/Exam: 08/15/20 11:32 pt will spray the notril tid for 3 days , low activity. rtc if problems. cool mist humidfier. Departure - Departure Time of Disposition: 11:26 Disposition: Home, Self-Care 01 Condition: Fair Clinical Impression: ENT complaint - Discharge Information Instructions: Nasal Foreign Body, Pediatric, [id number] Referrals: Danita Schneider CNM [Primary Care Provider] - Forms: ED Department Discharge
== END 2020-08-15 11:50 | disposition home or self-care (01) ==
LOC: JP.ED 10:39 → JP.EDOUT 10:39 → JP.ED 11:50 → EDSTATUS 13:03
DX: Z48.00 Encounter for change or removal of nonsurgical wound dressing (principal); I10 Essential (primary) hypertension; Z91.040 Latex allergy status; Z88.5 Allergy status to narcotic agent; Z88.8 Allergy status to other drugs, medicaments and biological substances; Z88.2 Allergy status to sulfonamides; Z79.899 Other long term (current) drug therapy
CPT/HCPCS: 99281; 99282; A9270-GY

== ENCOUNTER 2020-09-30 07:13 | Day surgery (SDC) | payer MEDICARE, BC ==
[2020-09-30] MEDS ORDERED: Dextrose 5%-Lactated Ringers 1,000 ML IV SCH (07:45)
[2020-09-30] MEDS ORDERED: Propofol 200 MG/20 ML SDV ONE (08:01)
[2020-09-30] MEDS ORDERED: fentaNYL 100 MCG/2 ML SDV ONE (08:01)
[2020-09-30 11:23] VITALS: BP 145/70; PULSE 72
--- NOTE | 2020-10-12 14:56 | OR ---
DATE OF PROCEDURE: 09/30/2020 SURGEON: John Zelaya MD PREOPERATIVE DIAGNOSIS: Probable gastroesophageal reflux disease. POSTOPERATIVE DIAGNOSIS: Small hiatal hernia associated with mild gastroesophageal reflux disease. OPERATIVE PROCEDURE: Esophagogastroduodenoscopy with: 1. Biopsy of esophagogastric junction for histologic evaluation. 2. Biopsies of antrum for CLOtest. ANESTHESIA: IV sedation. INDICATION FOR PROCEDURE: This is a 75-year-old female presenting for evaluation of gastroesophageal reflux disease. She had been on omeprazole 20 mg a day and recently been switched to Protonix 40 mg daily and she is questioning whether or not that resulted in a significant improvement. She has breakthrough reflux symptoms particularly after supper and in the evening. The plan is to proceed with upper GI endoscopy with biopsies as indicated. Potential risks including bleeding and perforation were discussed, and the patient wishes to proceed. DETAILS OF PROCEDURE: The patient was taken to the operating room and placed in a left lateral decubitus position. IV sedation was administered, after which the upper GI endoscope was passed orally through the length of the esophagus into the stomach with retroflexion view of the fundus, thereafter through the pyloric channel and into the proximal duodenum. Findings included normal hypopharynx, larynx, upper esophageal sphincter, and esophageal body. At the EG junction, there was some mild friability of the distal esophageal mucosa. There was little in the way of upward extension of the gastroesophageal junction mucosal line. There was roughly 1 or 2 cm hiatal hernia without plaquing or stricturing in the area of the distal esophagus. Remainder of the gastric and duodenal exams were otherwise unremarkable. At this point, biopsies were obtained from the antrum and sent for CLOtest to establish the patient's H pylori status. Multiple biopsies were then obtained from esophagogastric junction, sent for histologic evaluation. No bleeding from the biopsy sites was seen and the procedure then concluded. At this point, we will continue with the present medical management. We will have her follow up with Rocío Alexis in roughly 2 weeks. If the patient continues to be symptomatic while on proton pump inhibitors, reconsultation with Surgery regarding potential anti-reflux procedures would be warranted. John Zelaya MD /[id number]
== END 2020-09-30 11:40 | disposition home or self-care (01) ==
LOC: JP.SDS 07:13
PROVIDERS: ATTEND Surgery
DX: K21.00 Gastro-esophageal reflux disease with esophagitis, without bleeding (principal); K44.9 Diaphragmatic hernia without obstruction or gangrene; I10 Essential (primary) hypertension; Z91.040 Latex allergy status; Z88.2 Allergy status to sulfonamides; Z88.8 Allergy status to other drugs, medicaments and biological substances
CPT/HCPCS: 87081; 88305; J2704; J3010; J7121

== ENCOUNTER 2021-10-01 18:59 | Emergency (ER) | payer MEDICARE, BC ==
[2021-10-01] MEDS ORDERED: Sodium Chloride 0.9% 500 ML IV ONE (19:56)
[2021-10-01] MEDS ORDERED: Lisinopril 10 MG Tab PO SCH (20:00)
[2021-10-01 20:07] VITALS: PULSE 104
[2021-10-01 21:23] VITALS: BP 195/90
== END 2021-10-01 21:23 | disposition home or self-care (01) ==
LOC: JP.ED 18:59
DX: R42 Dizziness and giddiness (principal); J30.9 Allergic rhinitis, unspecified; E87.1 Hypo-osmolality and hyponatremia; I10 Essential (primary) hypertension; Z79.899 Other long term (current) drug therapy; Z88.2 Allergy status to sulfonamides; Z88.8 Allergy status to other drugs, medicaments and biological substances
CPT/HCPCS: 36415; 80048; 84484; 85025; 93005; 93010; 99283; 99285-25; A9270-GY; J7040

== ENCOUNTER 2022-08-07 10:05 | Emergency (ER) | payer MEDICARE, BC ==
[2022-08-07 10:14] VITALS: BP 178/70; PULSE 81
[2022-08-07] MEDS ORDERED: Sodium Chloride 0.9% 1,000 ML IV SCH (10:45)
[2022-08-07 10:54] LABS: CORONAVIRUS COVID-19 NAA POSITIVE (NEGATIVE)
[2022-08-07 11:12] LABS: ESTIMATED GFR 77 mL/min (>60)
[2022-08-07] MEDS ORDERED: Sodium Chloride 0.9% 10 ML Syringe FLUSH ONE (11:32)
[2022-08-07] MEDS ORDERED: Sodium Chloride 0.9% 50 ML IV SCH (11:45)
[2022-08-07] MEDS ORDERED: Iopamidol 612 MG/ML 100 ML Bottle IV SCH (11:45)
== END 2022-08-07 14:08 | disposition home or self-care (01) ==
LOC: JP.ED 10:05
DX: U07.1 COVID-19 (principal); E86.0 Dehydration; I10 Essential (primary) hypertension; Z91.040 Latex allergy status; Z88.5 Allergy status to narcotic agent; Z88.2 Allergy status to sulfonamides; Z88.8 Allergy status to other drugs, medicaments and biological substances; Z79.899 Other long term (current) drug therapy
CPT/HCPCS: 0241U; 36415; 71046; 80053; 81001; 85025; 86140; 96360; 96361; 99285; J7030; 99283

== ENCOUNTER 2022-08-31 20:20 | Emergency (ER) | payer MEDICARE, BC ==
[2022-08-31] MEDS ORDERED: Aluminum Hydroxide/Magnesium Hydroxide/Simethicone Susp 30 ML Cup PO STA (20:37)
[2022-08-31 21:21] LABS: ESTIMATED GFR 91 mL/min (>60)
[2022-08-31] MEDS ORDERED: Sodium Chloride 0.9% 10 ML Syringe FLUSH PRN (21:41)
[2022-08-31] MEDS ORDERED: Sodium Chloride 0.9% 10 ML Syringe FLUSH ONE (21:49)
[2022-08-31] MEDS ORDERED: Sodium Chloride 0.9% 50 ML IV ONE (21:49)
[2022-08-31] MEDS ORDERED: Iopamidol 612 MG/ML 100 ML Bottle IV ONE (21:49)
[2022-08-31] MEDS: Piperacillin/Tazobactam 3.375 GM in Sodium Chloride 0.9% 50 ML IV SCH (23:54)
[2022-09-01] MEDS: Piperacillin/Tazobactam 3.375 GM in Sodium Chloride 0.9% 50 ML IV SCH (05:56)
[2022-09-01 07:10] VITALS: BP 147/73; PULSE 80
== END 2022-09-01 07:15 ==
LOC: JP.ED 20:20
DX: K80.42 Calculus of bile duct with acute cholecystitis without obstruction (principal); K83.8 Other specified diseases of biliary tract; R74.8 Abnormal levels of other serum enzymes; I10 Essential (primary) hypertension; Z88.8 Allergy status to other drugs, medicaments and biological substances; Z91.040 Latex allergy status; Z88.5 Allergy status to narcotic agent; Z88.2 Allergy status to sulfonamides; Z79.899 Other long term (current) drug therapy; Z20.822 Contact with and (suspected) exposure to COVID-19
CPT/HCPCS: 36415; 71046; 74177; 80053; 83605; 83690; 85025; 96365; 96366; 99285; A9270; J2543; J3490; Q9967; U0002

== ENCOUNTER 2022-10-11 08:57 | Day surgery (SDC) | payer MEDICARE, BC ==
[~2022-10-11 08:57] MED LIST: Sodium Chloride 0.9% 10 ML Syringe FLUSH PRN
[2022-10-11 10:18] VITALS: BP 157/69; PULSE 60
== END 2022-10-11 10:24 | disposition home or self-care (01) ==
LOC: JP.SDS 08:57
PROVIDERS: ATTEND Ophthalmology
DX: H26.9 Unspecified cataract (principal); I10 Essential (primary) hypertension; E78.5 Hyperlipidemia, unspecified; K58.9 Irritable bowel syndrome, unspecified; K21.9 Gastro-esophageal reflux disease without esophagitis; Z88.2 Allergy status to sulfonamides; Z79.899 Other long term (current) drug therapy; Z91.040 Latex allergy status; Z88.5 Allergy status to narcotic agent; Z88.8 Allergy status to other drugs, medicaments and biological substances
CPT/HCPCS: 66984; J3490

== ENCOUNTER 2023-02-20 12:06 | Emergency (ER) | payer MEDICARE, BC ==
[2023-02-20 12:50] LABS: HEMATOCRIT 38.9 % (34.3-46.0); HEMOGLOBIN 13.5 g/dL (11.2-15.5); MEAN CORPUSCULAR HEMOGLOBIN 31.8 pg (31.6-35.5); MEAN CORPUSCULAR HGB CONC 34.7 g/dL (31.6-35.5); MEAN CORPUSCULAR VOLUME 91.5 fL (81.4-99.0); RED BLOOD CELL COUNT 4.25 M/uL (3.77-5.24); WHITE BLOOD CELL COUNT,WBC 8.9 K/uL (3.2-11.0)
[2023-02-20 12:51] LABS: BASE EXCESS VENOUS 2.9 mm/L; BICARBONATE,VENOUS 26.2 mmol/L; CARBOXYHEMOGLOBIN 2.5 % (0.0-1.6); METHEMOGLOBIN 0.7 %; O2 SATURATION VENOUS 54.1; OXYHEMOGLOBIN 52.4 %; PCO2 VENOUS 37.2 mm/Hg; PH,VENOUS 7.462 (7.350-7.450); TOTAL HEMOGLOBIN 13.8 g/dL (12.0-16.0)
[2023-02-20 12:52] LABS: PO2 VENOUS 32.1 mm/Hg
[2023-02-20] MEDS: Nitroglycerin 0.4 MG Tab.SL SL PRN ×2 (12:54→13:04)
[2023-02-20 13:13] LABS: INR 1.1
[2023-02-20 13:22] LABS: A/G RATIO 1.3 (1.2-2.2); ALANINE AMINOTRANSFERASE,ALT 39 U/L (12-78); ALBUMIN 4.1 g/dL (3.4-5.0); ALKALINE PHOSPHATASE 119 U/L (46-116); ANION GAP 11.8 mmol/L (5.0-14.0); ASPARTATE AMNIOTRANSFERASE,AST 33 U/L (15-37); BILIRUBIN TOTAL 0.8 mg/dL (0.2-1.0); BLOOD UREA NITROGEN,BUN 8 mg/dL (7-18); CALCIUM 9.5 mg/dL (8.5-10.1); CARBON DIOXIDE,CO2 29 mmol/L (21-32); CHLORIDE,CL 97 mmol/L (100-108); CREATININE 0.8 mg/dL (0.6-1.0); EST CRCL DRUG DOSING (CG) 55.69 mL/min; ESTIMATED GFR 77 mL/min (>60); GLUCOSE RANDOM 120 mg/dL (74-106); POTASSIUM,K 3.8 mmol/L (3.6-5.2); PRO B-TYPE NATRIUR PEPT,BNPPRO 4208 pg/mL (5-450); PROTEIN TOTAL,TP 7.3 g/dL (6.4-8.2); SODIUM,NA 134 mmol/L (140-148)
[2023-02-20 16:00] VITALS: BP 146/68; PULSE 63
[2023-02-20 16:59] LABS: APPEARANCE,URINE CLEAR (CLEAR); BILIRUBIN,URINE NEGATIVE (NEGATIVE); COLOR,URINE YELLOW (YELLOW); GLUCOSE,URINE NEGATIVE (NEGATIVE); KETONES,URINE NEGATIVE (NEGATIVE); LEUKOCYTE ESTERASE,URINE NEGATIVE (NEGATIVE); NITRITE,URINE NEGATIVE (NEGATIVE); OCCULT BLOOD,URINE NEGATIVE (NEGATIVE); PH,URINE 7.5 (5.0-8.0); PROTEIN,URINE NEGATIVE (NEGATIVE); UROBILINOGEN,URINE 0.2 EU/dL (0.2-1.0)
[2023-02-20 17:04] LABS: AMORPHOUS SEDIMENT,URINE NOT SEEN; BACTERIA,URINE RARE; EPITHELIAL CELLS,URINE RARE; MUCUS,URINE NOT SEEN; RBC,URINE 0-5 (0-5); WBC,URINE 0-5 (0-5)
== END 2023-02-20 17:49 | disposition home or self-care (01) ==
LOC: JP.ED 12:06
DX: R07.2 Precordial pain (principal); I10 Essential (primary) hypertension; M19.90 Unspecified osteoarthritis, unspecified site; Z87.891 Personal history of nicotine dependence; Z86.16 Personal history of COVID-19; Z88.8 Allergy status to other drugs, medicaments and biological substances; Z91.040 Latex allergy status; Z88.5 Allergy status to narcotic agent; Z88.2 Allergy status to sulfonamides; Z79.899 Other long term (current) drug therapy; Z20.822 Contact with and (suspected) exposure to COVID-19
CPT/HCPCS: 36415; 71045; 80053; 81001; 82803; 83605; 83880; 84145; 84484; 85027; 85379; 85610; 93005; 99285; A9270; U0002; 93010; 99284

== ENCOUNTER 2023-10-30 06:58 | Day surgery (SDC) | payer MEDICARE, BC ==
[~2023-10-30 06:58] MED LIST changes: +Propofol 200 MG/20 ML SDV ONE; -Sodium Chloride 0.9% 10 ML Syringe FLUSH PRN; +fentaNYL 50 MCG/ML SDV ONE
[2023-10-30] MEDS ORDERED: Lactated Ringers 1,000 ML IV SCH (07:30)
[2023-10-30 09:02] VITALS: BP 135/57; PULSE 62
== END 2023-10-30 09:41 ==
LOC: JP.SDS 06:58
PROVIDERS: ATTEND Surgery
DX: K21.00 Gastro-esophageal reflux disease with esophagitis, without bleeding (principal); I10 Essential (primary) hypertension
CPT/HCPCS: 43239; J2704; J3010

== ENCOUNTER 2024-04-26 12:29 | Emergency (ER) | payer MEDICARE, BC ==
[2024-04-26 13:07] VITALS: BP 133/69; PULSE 82
== END 2024-04-26 16:54 | disposition left against medical advice (07) ==
LOC: JP.ED 12:29
DX: Z53.21 Procedure and treatment not carried out due to patient leaving prior to being seen by health care provider (principal)

== ENCOUNTER 2024-04-26 18:29 | Emergency (ER) | payer MEDICARE, BC ==
[2024-04-26 19:20] VITALS: BP 92/65; PULSE 79
[2024-04-26] MEDS: Ketorolac 30 MG/ML SDV IM ONE (19:51)
[2024-04-26 19:59] LABS: HEMATOCRIT 32.5 % (34.3-46.0); HEMOGLOBIN 11.9 g/dL (11.2-15.5); MEAN CORPUSCULAR HEMOGLOBIN 31.2 pg (31.6-35.5); MEAN CORPUSCULAR HGB CONC 36.6 g/dL (31.6-35.5); MEAN CORPUSCULAR VOLUME 85.3 fL (81.4-99.0); PLATELET COUNT,PLT 216 K/uL (130-375); RED BLOOD CELL COUNT 3.81 M/uL (3.77-5.24); WHITE BLOOD CELL COUNT,WBC 11.5 K/uL (3.2-11.0)
[2024-04-26 20:21] LABS: ATYPICAL LYMPHOCYTES FEW; EOSINOPHILS ABSOLUTE MAN 0.12 K/uL (0.00-0.40); EOSINOPHILS PERCENT MAN 1 % (2-4); LYMPHOCYTES PERCENT MAN 20 % (24-44); MONOCYTES ABSOLUTE MAN 0.46 K/uL (0.20-0.90); MONOCYTES PERCENT MAN 4 % (2-6); NEUTROPHILS ABSOLUTE MAN 8.63 K/uL (1.0-7.6); SEG NEUTROPHILS PERCENT MAN 75 % (36-66)
[2024-04-26] MEDS: cefTRIAXone 1 GM, Lidocaine 1% 2.1 ML IM ONE (21:00)
== END 2024-04-26 21:18 | disposition home or self-care (01) ==
LOC: JP.ED 18:29
DX: L03.114 Cellulitis of left upper limb (principal); I10 Essential (primary) hypertension; J44.9 Chronic obstructive pulmonary disease, unspecified; Z90.49 Acquired absence of other specified parts of digestive tract; Z90.710 Acquired absence of both cervix and uterus; Z79.899 Other long term (current) drug therapy; Z91.048 Other nonmedicinal substance allergy status; Z88.9 Allergy status to unspecified drugs, medicaments and biological substances; Z91.040 Latex allergy status; Z88.5 Allergy status to narcotic agent; Z88.8 Allergy status to other drugs, medicaments and biological substances; Z88.2 Allergy status to sulfonamides
CPT/HCPCS: 36415; 84550; 85025; 85379; 86140; 96372; 99283; J0696; J1885

== ENCOUNTER 2024-04-28 11:52 | Emergency (ER) | payer MEDICARE, BC ==
[2024-04-28 12:19] VITALS: BP 136/66; PULSE 72
[2024-04-28 12:43] LABS: BASOPHILS ABSOLUTE AUTO 0.05 K/uL (0.00-0.10); BASOPHILS PERCENT AUTO 0.4 % (0.1-1.3); EOSINOPHILS ABSOLUTE AUTO 0.08 K/uL (0.00-0.40); EOSINOPHILS PERCENT AUTO 0.7 % (0.0-5.4); HEMATOCRIT 35.9 % (34.3-46.0); HEMOGLOBIN 12.5 g/dL (11.2-15.5); IMMATURE GRAN ABSOLUTE AUTO 0.16 K/uL (0.00-0.23); IMMATURE GRAN PERCENT AUTO 1.4 % (0.0-0.7); LYMPHOCYTES ABSOLUTE AUTO 2.05 K/uL (0.8-3.3); LYMPHOCYTES PERCENT AUTO 18.3 % (11.4-47.7); MEAN CORPUSCULAR HEMOGLOBIN 31.3 pg (31.6-35.5); MEAN CORPUSCULAR HGB CONC 34.8 g/dL (31.6-35.5); MEAN CORPUSCULAR VOLUME 89.8 fL (81.4-99.0); MONOCYTES PERCENT AUTO 10.7 % (3.3-12.6); NEUTROPHILS ABSOLUTE AUTO 7.69 K/uL (1.0-7.6); NEUTROPHILS PERCENT AUTO 68.5 % (40.0-78.1); PLATELET COUNT,PLT 285 K/uL (130-375); WHITE BLOOD CELL COUNT,WBC 11.2 K/uL (3.2-11.0)
[2024-04-28 12:50] LABS: APPEARANCE,URINE CLEAR (CLEAR); BILIRUBIN,URINE NEGATIVE (NEGATIVE); COLOR,URINE YELLOW (YELLOW); GLUCOSE,URINE NEGATIVE (NEGATIVE); KETONES,URINE NEGATIVE (NEGATIVE); LEUKOCYTE ESTERASE,URINE NEGATIVE (NEGATIVE); NITRITE,URINE NEGATIVE (NEGATIVE); OCCULT BLOOD,URINE TRACE-INTACT (NEGATIVE); PROTEIN,URINE NEGATIVE (NEGATIVE); UROBILINOGEN,URINE 0.2 EU/dL (0.2-1.0)
[2024-04-28 12:58] LABS: EPITHELIAL CELLS,URINE NOT SEEN; RBC,URINE 0-5 (0-5); WBC,URINE NOT SEEN (0-5)
[2024-04-28 12:59] LABS: AMORPHOUS SEDIMENT,URINE RARE; BACTERIA,URINE NOT SEEN; MUCUS,URINE NOT SEEN
[2024-04-28 13:00] LABS: A/G RATIO 0.9 (1.2-2.2); ALANINE AMINOTRANSFERASE,ALT 42 U/L (12-78); ALBUMIN 3.6 g/dL (3.4-5.0); ALKALINE PHOSPHATASE 68 U/L (46-116); ASPARTATE AMNIOTRANSFERASE,AST 67 U/L (15-37); BILIRUBIN TOTAL 0.5 mg/dL (0.2-1.0); BLOOD UREA NITROGEN,BUN 14 mg/dL (7-18); C-REACTIVE PROTEIN 5.97 mg/dL (<0.50); CALCIUM 9.7 mg/dL (8.5-10.1); CARBON DIOXIDE,CO2 28 mmol/L (21-32); CHLORIDE,CL 95 mmol/L (100-108); CREATININE 0.8 mg/dL (0.6-1.0); EST CRCL DRUG DOSING (CG) 48.84 mL/min; ESTIMATED GFR 76 mL/min (>60); GLUCOSE RANDOM 114 mg/dL (74-106); PROTEIN TOTAL,TP 7.7 g/dL (6.4-8.2); SODIUM,NA 133 mmol/L (140-148)
[2024-04-28] MEDS ORDERED: Sodium Chloride 0.9% 10 ML Syringe FLUSH PRN (13:06)
[2024-04-28] MEDS: Iopamidol 612 MG/ML 100 ML Bottle IV ONE (13:26)
[2024-04-28] MEDS: Sodium Chloride 0.9% 80 ML IV SCH (13:26)
[2024-04-28] MEDS ORDERED: cefTRIAXone 1 GM in Sodium Chloride 0.9% 50 ML IV ONE (14:45)
[2024-04-28] MEDS: cefTRIAXone 1 GM in Sodium Chloride 0.9% 100 ML IV ONE (14:54)
[2024-04-28] MEDS: Ketorolac 15 MG/ML SDV IVPUSH ONE (15:00)
== END 2024-04-28 16:23 | disposition home or self-care (01) ==
LOC: JP.ED 11:52
DX: R10.84 Generalized abdominal pain (principal); L03.114 Cellulitis of left upper limb; I10 Essential (primary) hypertension; J44.9 Chronic obstructive pulmonary disease, unspecified; Z90.49 Acquired absence of other specified parts of digestive tract; Z90.710 Acquired absence of both cervix and uterus; Z79.899 Other long term (current) drug therapy; Z79.51 Long term (current) use of inhaled steroids; Z88.2 Allergy status to sulfonamides; Z88.8 Allergy status to other drugs, medicaments and biological substances; Z91.040 Latex allergy status; Z88.5 Allergy status to narcotic agent
CPT/HCPCS: 36415; 74177; 80053; 81001; 83690; 85025; 86140; 96365; 96375; 99284; J0696; J1885; J3490; Q9967

== ENCOUNTER 2024-11-22 10:06 | Emergency (ER) | payer MEDICARE, BC ==
[2024-11-22 12:09] VITALS: BP 153/77; PULSE 74
[2024-11-22 13:12] LABS: BASOPHILS ABSOLUTE AUTO 0.06 K/uL (0.00-0.10); BASOPHILS PERCENT AUTO 0.5 % (0.1-1.3); EOSINOPHILS ABSOLUTE AUTO 1.21 K/uL (0.00-0.40); EOSINOPHILS PERCENT AUTO 9.2 % (0.0-5.4); IMMATURE GRAN ABSOLUTE AUTO 0.11 K/uL (0.00-0.23); IMMATURE GRAN PERCENT AUTO 0.8 % (0.0-0.7); LYMPHOCYTES ABSOLUTE AUTO 1.46 K/uL (0.8-3.3); LYMPHOCYTES PERCENT AUTO 11.1 % (11.4-47.7); MEAN CORPUSCULAR HEMOGLOBIN 31.2 pg (31.6-35.5); MEAN CORPUSCULAR HGB CONC 34.2 g/dL (31.6-35.5); MEAN CORPUSCULAR VOLUME 91.1 fL (81.4-99.0); MONOCYTES PERCENT AUTO 9.1 % (3.3-12.6); NEUTROPHILS ABSOLUTE AUTO 9.16 K/uL (1.0-7.6); NEUTROPHILS PERCENT AUTO 69.3 % (40.0-78.1); PLATELET COUNT,PLT 261 K/uL (130-375); RED BLOOD CELL COUNT 4.17 M/uL (3.77-5.24); WHITE BLOOD CELL COUNT,WBC 13.2 K/uL (3.2-11.0)
== END 2024-11-22 14:20 | disposition home or self-care (01) ==
LOC: JP.ED 10:06
DX: J01.90 Acute sinusitis, unspecified (principal); D72.820 Lymphocytosis (symptomatic); I10 Essential (primary) hypertension; Z90.49 Acquired absence of other specified parts of digestive tract; Z87.891 Personal history of nicotine dependence; Z79.899 Other long term (current) drug therapy; Z88.2 Allergy status to sulfonamides; Z88.5 Allergy status to narcotic agent; Z88.8 Allergy status to other drugs, medicaments and biological substances; Z91.040 Latex allergy status
CPT/HCPCS: 36415; 85025; 99284

== ENCOUNTER 2024-11-27 15:50 | Observation (INO) | payer MEDICARE, BC ==
[2024-11-27] MEDS ORDERED: Acetaminophen 325 MG Tab PO PRN (16:15)
[2024-11-27] MEDS ORDERED: Ondansetron 4 MG/2 ML SDV IV PRN (16:15)
[2024-11-27] MEDS ORDERED: Albuterol 0.083% 2.5 MG/3 ML Neb Soln NEB PRN (16:15)
[2024-11-27] MEDS ORDERED: Polyethylene Glycol 3350 Powder 17 GM Packet PO PRN (16:15)
[2024-11-27] MEDS ORDERED: Sodium Chloride 0.9% 10 ML Syringe FLUSH PRN (16:15)
[2024-11-27 16:42] LABS: BASOPHILS ABSOLUTE AUTO 0.14 K/uL (0.00-0.10); BASOPHILS PERCENT AUTO 1.1 % (0.1-1.3); EOSINOPHILS ABSOLUTE AUTO 1.85 K/uL (0.00-0.40); EOSINOPHILS PERCENT AUTO 14.5 % (0.0-5.4); HEMOGLOBIN 12.4 g/dL (11.2-15.5); IMMATURE GRAN PERCENT AUTO 1.6 % (0.0-0.7); LYMPHOCYTES ABSOLUTE AUTO 1.77 K/uL (0.8-3.3); LYMPHOCYTES PERCENT AUTO 13.8 % (11.4-47.7); MEAN CORPUSCULAR HEMOGLOBIN 31.2 pg (31.6-35.5); MEAN CORPUSCULAR HGB CONC 34.4 g/dL (31.6-35.5); MEAN CORPUSCULAR VOLUME 90.7 fL (81.4-99.0); MONOCYTES PERCENT AUTO 9.4 % (3.3-12.6); NEUTROPHILS ABSOLUTE AUTO 7.64 K/uL (1.0-7.6); NEUTROPHILS PERCENT AUTO 59.6 % (40.0-78.1); PLATELET COUNT,PLT 371 K/uL (130-375); RED BLOOD CELL COUNT 3.97 M/uL (3.77-5.24); WHITE BLOOD CELL COUNT,WBC 12.8 K/uL (3.2-11.0)
[2024-11-27 17:02] LABS: A/G RATIO 0.7 (1.2-2.2); ALANINE AMINOTRANSFERASE,ALT 23 U/L (12-78); ALBUMIN 2.9 g/dL (3.4-5.0); ALKALINE PHOSPHATASE 108 U/L (46-116); ASPARTATE AMNIOTRANSFERASE,AST 11 U/L (15-37); BILIRUBIN TOTAL 0.4 mg/dL (0.2-1.0); BLOOD UREA NITROGEN,BUN 24 mg/dL (7-18); CALCIUM 9.6 mg/dL (8.5-10.1); CARBON DIOXIDE,CO2 29 mmol/L (21-32); CHLORIDE,CL 93 mmol/L (100-108); CREATININE 0.9 mg/dL (0.6-1.0); ESTIMATED GFR 66 mL/min (>60); GLUCOSE RANDOM 118 mg/dL (74-106); MAGNESIUM 1.7 mg/dL (1.8-2.4); POTASSIUM,K 4.5 mmol/L (3.6-5.2); PROTEIN TOTAL,TP 7.1 g/dL (6.4-8.2); SODIUM,NA 129 mmol/L (140-148)
[2024-11-27 17:04] LABS: ANION GAP 11.5 mmol/L (5.0-14.0)
[2024-11-27] MEDS ORDERED: Albuterol 6.7 GM Inhaler INH PRN (17:15)
[2024-11-27] MEDS: cefTRIAXone 1 GM in Sodium Chloride 0.9% 50 ML IV SCH (17:41)
[2024-11-27] MEDS: Enoxaparin 40 MG/0.4 ML Syringe SUBCUT SCH (17:46)
[2024-11-27] MEDS ORDERED: Doxycycline 100 MG in Sodium Chloride 0.9% 100 ML IV SCH (18:00)
[2024-11-27] MEDS: Azithromycin 500 MG in Sodium Chloride 0.9% 250 ML IV SCH (18:27)
[2024-11-27] MEDS: Sucralfate 1 GM Tab PO SCH (19:37)
[2024-11-27] MEDS: Magnesium Sulfate 2 GM/50 mL 2 GM in Premix Bag 1 BAG IV SCH (19:41)
[2024-11-27] MEDS: Gabapentin 100 MG Cap PO SCH (21:11)
[2024-11-27] MEDS: Metoprolol Tartrate 50 MG Tab PO SCH (21:12)
[2024-11-27] MEDS: Magnesium Oxide 400 MG Tab PO SCH (21:15)
[2024-11-28] MEDS: Pantoprazole 40 MG Tab.CR PO SCH (08:46)
[2024-11-28] MEDS: Lactobacillus Rhamnosus GG (Probiotic) Cap PO SCH (08:46)
[2024-11-28 08:53] VITALS: BP 127/58
[2024-11-28] MEDS ORDERED: Non-Formulary Medication 1 Each (Omeprazole [Omeprazole] 20 MG Capsule.Dr) PO SCH (09:00)
[2024-11-28] MEDS: Cetirizine 10 MG Tab PO SCH (10:50)
[2024-11-28] MEDS: Famotidine 20 MG Tab PO SCH (13:34)
[2024-11-28 13:54] VITALS: PULSE 87
[2024-11-28] MEDS: cefTRIAXone 1 GM in Sodium Chloride 0.9% 50 ML IV SCH (13:56)
[2024-11-28] MEDS: Azithromycin 500 MG in Sodium Chloride 0.9% 250 ML IV SCH (14:49)
== END 2024-11-28 16:30 | disposition home or self-care (01) ==
LOC: JP.ICU 15:50
PROVIDERS: ADMIT Hospitalist; ATTEND Hospitalist
DX: J18.9 Pneumonia, unspecified organism (principal); J44.9 Chronic obstructive pulmonary disease, unspecified; I10 Essential (primary) hypertension; Z79.899 Other long term (current) drug therapy; Z88.2 Allergy status to sulfonamides; Z88.8 Allergy status to other drugs, medicaments and biological substances; Z88.5 Allergy status to narcotic agent; Z91.040 Latex allergy status
CPT/HCPCS: 36415; 80053; 83735; 85025; 87040; 87070; 87205; 96365; 96366; 96367; 96372; 99222; 99238; A9270; G0378; J0456; J0696; J1650; J3475; J7050

== ENCOUNTER 2024-12-13 10:48 | Emergency (ER) | payer MEDICARE, BC ==
[2024-12-13 11:12] VITALS: BP 152/86; PULSE 55
[2024-12-13 11:49] LABS: ANION GAP 11.6 mmol/L (5.0-14.0); CALCIUM 9.2 mg/dL (8.5-10.1); CREATININE 0.9 mg/dL (0.6-1.0); EST CRCL DRUG DOSING (CG) 44.71 mL/min; POTASSIUM,K 4.6 mmol/L (3.6-5.2)
== END 2024-12-13 12:14 | disposition home or self-care (01) ==
LOC: JP.ED 10:48
DX: E87.1 Hypo-osmolality and hyponatremia (principal); I10 Essential (primary) hypertension; Z88.2 Allergy status to sulfonamides; Z91.040 Latex allergy status; Z88.8 Allergy status to other drugs, medicaments and biological substances; Z79.899 Other long term (current) drug therapy; Z90.49 Acquired absence of other specified parts of digestive tract; Z90.710 Acquired absence of both cervix and uterus
CPT/HCPCS: 36415; 80048; 99283